=== PATIENT | female | born 1960 | race Caucasian/White ===

== ENCOUNTER → 2017-04-22 | Outpatient (CLI) | payer OTHER ==
[2017-04-22 08:09] LABS: Cholesterol 274 mg/dL (<200); HDL Cholesterol 76 mg/dL (40-60)
== END | disposition home or self-care (01) ==
LOC: LABWHC1 07:26
PROVIDERS: ATTEND Psychiatry & Neurology Psychiatry
DX: E78.5 Hyperlipidemia, unspecified (principal)
CPT/HCPCS: 36415; 80061

== ENCOUNTER 2017-11-10 16:48 | Emergency (ER) | payer OTHER ==
[2017-11-10 16:56] VITALS: RESP 18
[2017-11-10] MEDS ORDERED: SODIUM CHLORIDE 0.9% 1,000 ML IV STA (17:13)
[2017-11-10 17:37] LABS: Appearance,Urine Clear (Clear); Bilirubin,Urine Negative (Negative); Blood,Urine Negative (Negative); Color,Urine Colorless; Glucose,Urine (UA) Negative (Negative); Ketones,Urine Negative (Negative); Leukocyte Esterase,Urine Negative (Negative); Nitrite,Urine Negative (Negative); PH, Urine 7.5 (5.0-8.0); Protein,Urine Negative (Negative); Specific Gravity,Urine 1.003 (1.001-1.035); Urobilinogen,Urine <2.0 mg/dL (<2.0)
--- NOTE | 2017-11-10 17:38 | ED ---
Abdominal Pain HPI - General Chief Complaint: Abdominal Pain Stated Complaint: Abd pain Time Seen by Provider: 11/10/17 16:59 Source: patient, RN notes reviewed Mode of arrival: ambulatory Limitations: no limitations - History of Present Illness Initial Comments: This a 57-year-old female presents emergency Department with chief complaint of right lower quadrant abdominal pain. Patient states that she woke with the pain and felt that she may have just slept wrong and she slipped and chair at the hospital. Patient states that pain did not get much better throughout the day did see PCP felt that she may does have some gas issues. She reports no fever no chills she did have a normal bowel movement today with no difficulty and no change in her symptoms. She states that she does feel the pain even when she stretches back if is very uncomfortable. Patient denies any nausea vomiting. She has no dysuria no hematuria. Patient has had a prior to with surgery and prior cholecystectomy. Patient denies any back pain no flank pain. - Related Data Home Medications Medication Instructions Recorded Confirmed Acetaminophen Tab [Tylenol Tab] 500 mg PO ONCE PRN 11/10/17 11/10/17 Citalopram Hydrobromide [CeleXA] 30 mg PO DAILY 11/10/17 11/10/17 Allergies Allergy/AdvReac Type Severity Reaction Status Date / Time No Known Allergies Allergy Verified 11/10/17 17:07 Review of Systems ROS Statement: Those systems with pertinent positive or pertinent negative responses have been documented in the HPI. ROS Other: All systems not noted in ROS Statement are negative. Past Medical History Past Medical History: No Reported History History of Any Multi-Drug Resistant Organisms: None Reported Past Surgical History: Cholecystectomy Additional Past Surgical History / Comment(s): tubal Past Psychological History: Anxiety, Depression Smoking Status: Never smoker Past Alcohol Use History: None Reported Past Drug Use History: None Reported General Exam Limitations: no limitations General appearance: alert, in no apparent distress Head exam: Present: atraumatic, normocephalic, normal inspection Neck exam: Present: normal inspection. Absent: tenderness, meningismus, lymphadenopathy Respiratory exam: Present: normal lung sounds bilaterally. Absent: respiratory distress, wheezes, rales, rhonchi, stridor Cardiovascular Exam: Present: regular rate, normal rhythm, normal heart sounds. Absent: systolic murmur, diastolic murmur, rubs, gallop, clicks GI/Abdominal exam: Present: soft, tenderness (Moderate right lower quadrant tenderness), guarding (Voluntary guarding with palpation the right lower), normal bowel sounds. Absent: distended, rebound, rigid Back exam: Absent: CVA tenderness (R), CVA tenderness (L) Skin exam: Present: warm, dry, intact, normal color. Absent: rash Course Vital Signs 11/10/17 16:54 Temperature 98.8 F Pulse Rate 96 Respiratory 18 Rate Blood Pressure 133/84 O2 Sat by Pulse 99 Oximetry Medical Decision Making - Medical Decision Making 57-year-old female presented emergency department for right lower quadrant abdominal pain. Patient had CT which was unremarkable. Patient has unremarkable laboratory and urinalysis. There is no exact cause for her pain at this time though infectious have been ruled out. Patient will be discharged advised take Tylenol Motrin and follow-up with PCP return parameters were discussed. - Lab Data Result diagrams: 11/10/17 17:27 11/10/17 17:27 Lab Results 11/10/17 11/10/17 11/10/17 Range/Units 17:27 17:27 17:27 WBC 4.5 (3.8-10.6) k/uL RBC 4.20 (3.80-5.40) m/uL Hgb 13.7 (11.4-16.0) gm/dL Hct 39.9 (34.0-46.0) % MCV 94.8 (80.0-100.0) fL MCH 32.5 (25.0-35.0) pg MCHC 34.3 (31.0-37.0) g/dL RDW 12.3 (11.5-15.5) % Plt Count 262 (150-450) k/uL Neutrophils % 54 % Lymphocytes % 30 % Monocytes % 7 % Eosinophils % 7 % Basophils % 1 % Neutrophils # 2.4 (1.3-7.7) k/uL Lymphocytes # 1.3 (1.0-4.8) k/uL Monocytes # 0.3 (0-1.0) k/uL Eosinophils # 0.3 (0-0.7) k/uL Basophils # 0.0 (0-0.2) k/uL Sodium 143 (137-145) mmol/L Potassium 4.1 (3.5-5.1) mmol/L Chloride 106 (98-107) mmol/L Carbon Dioxide 24 (22-30) mmol/L Anion Gap 13 mmol/L BUN 14 (7-17) mg/dL Creatinine 0.90 (0.52-1.04) mg/dL Est GFR (CKD-EPI)AfAm 83 (>60 ml/min/1.73 sqM) Est GFR (CKD-EPI)NonAf 72 (>60 ml/min/1.73 sqM) Glucose 97 (74-99) mg/dL Calcium 10.1 (8.4-10.2) mg/dL Total Bilirubin 0.4 (0.2-1.3) mg/dL AST 26 (14-36) U/L ALT 27 (9-52) U/L Alkaline Phosphatase 73 (38-126) U/L Total Protein 6.9 (6.3-8.2) g/dL Albumin 4.4 (3.5-5.0) g/dL Amylase 71 (30-110) U/L Lipase 70 (23-300) U/L Urine Color Colorless Urine Appearance Clear (Clear) Urine pH 7.5 (5.0-8.0) Ur Specific [place] 1.003 (1.001-1.035) Urine Protein Negative (Negative) Urine Glucose (UA) Negative (Negative) Urine Ketones Negative (Negative) Urine Blood Negative (Negative) Urine Nitrite Negative (Negative) Urine Bilirubin Negative (Negative) Urine Urobilinogen <2.0 (<2.0) mg/dL Ur Leukocyte Esterase Negative (Negative) Disposition Clinical Impression: Abdominal pain Disposition: HOME SELF-CARE Condition: Stable Instructions: Abdominal Pain (ED) Additional Instructions: Please return to the Emergency Department if symptoms worsen or any other concerns. Is patient prescribed a controlled substance at d/c from ED?: No Referrals: Hugo Cartwright MD [Primary Care Provider] - 1-2 days Time of Disposition: 18:12
[2017-11-10 17:45] LABS: Basophils % (A) 1 %; Eosinophils # (A) 0.3 k/uL (0-0.7); Eosinophils % (A) 7 %; HCT 39.9 % (34.0-46.0); HGB 13.7 gm/dL (11.4-16.0); Lymphocytes # (A) 1.3 k/uL (1.0-4.8); Lymphocytes % (A) 30 %; MCH 32.5 pg (25.0-35.0); MCHC 34.3 g/dL (31.0-37.0); MCV 94.8 fL (80.0-100.0); Mean Platelet Volume 6.3; Monocytes # (A) 0.3 k/uL (0-1.0); Monocytes % (A) 7 %; Neutrophils # (A) 2.4 k/uL (1.3-7.7); Neutrophils % (A) 54 %; Platelet Count 262 k/uL (150-450); RDW 12.3 % (11.5-15.5); WBC 4.5 k/uL (3.8-10.6)
[2017-11-10 17:53] LABS: Albumin 4.4 g/dL (3.5-5.0); Calcium 10.1 mg/dL (8.4-10.2); Potassium 4.1 mmol/L (3.5-5.1); Total Bilirubin 0.4 mg/dL (0.2-1.3); Total Protein 6.9 g/dL (6.3-8.2)
--- NOTE | 2017-11-10 18:00 | CT ---
EXAMINATION TYPE: CT abdomen pelvis w con DATE OF EXAM: 11/10/2017 COMPARISON: NONE HISTORY: Right lower quadrant pain CT DLP: 969 mGycm Automated exposure control for dose reduction was used. TECHNIQUE: Helical acquisition of images was performed from the lung bases through the pelvis. CONTRAST: Performed without Oral Contrast and with IV Contrast, patient injected with 100 mL of Isovue 300. FINDINGS: Lung bases are clear. There is no pleural effusion. Heart size is normal. There is mild enlargement of the biliary tree. There are clips from cholecystectomy. Spleen appears n ormal. There is no pancreatic mass. Common bile duct measures up to 12 mm. There are a few small cyst s grouped in the inferior right lobe of the liver that altogether measure 2 cm. There is no adrenal mass. Kidneys show satisfactory contrast opacification. There is no hydronephrosi s. Ureters are not dilated. There is no retroperitoneal adenopathy. There is no ascites. I see no int estinal wall thickening. There are no dilated loops. Bladder distends smoothly. The uterus is antever felicita. I see no bony destructive process. There is no free fluid in the pelvis. Appendix appears normal . IMPRESSION: NORMAL APPENDIX. MILD ENLARGEMENT OF THE BILIARY TREE BUT NO OBSTRUCTING LESION SEEN IN THE DISTAL CO MMON BILE DUCT.
[2017-11-10 18:23] VITALS: BP 128/69; PULSE 67; TEMP 98
== END 2017-11-10 18:23 | disposition home or self-care (01) ==
LOC: EC 16:48
DX: R10.31 Right lower quadrant pain (principal); F32.9 Major depressive disorder, single episode, unspecified; F41.9 Anxiety disorder, unspecified; Z79.899 Other long term (current) drug therapy; Z90.49 Acquired absence of other specified parts of digestive tract
CPT/HCPCS: 36415; 80053; 82150; 83690; 85025; 81003; 74177; 99284; 96360; Q9967

== ENCOUNTER 2017-11-20 17:54 | Inpatient (IN) | payer OTHER ==
[2017-11-20] MEDS ORDERED: ACETAMINOPHEN IV (For NPO) 1,000 MG in EMPTY BAG 1 BAG IVPB STA (18:25)
[2017-11-20] MEDS ORDERED: SODIUM CHLORIDE 0.9% 1,000 ML IV STA (18:25)
[2017-11-20] MEDS ORDERED: RX INFO: IV CONTRAST WAS GIVEN 1 EACH MISC MISCELLANE PRN (18:25)
--- NOTE | 2017-11-20 18:30 | ED ---
General Adult HPI - General Chief complaint: Fever Stated complaint: Abscess under armpit, fever Time Seen by Provider: 11/20/17 18:08 Source: patient, RN notes reviewed Mode of arrival: ambulatory Limitations: no limitations - History of Present Illness Initial comments: Patient 57-year-old female presenting to the emergency room today with a chief complaint of possible abscess. Patient states that she noticed small bite to the left axilla 2 days ago. She states she began having chills and overall body aches over the last day. States that she went to urgent care and was advised complete emergency room for further evaluation. She states that she was given ibuprofen at urgent care. She states took Tylenol at 11 AM. Patient admits to pain locally to left axilla area worse with any movements of the left arm. Denies any other complaints. Denies any injury or trauma to the area. Patient denies any recent shortness of breath, chest pain, back pain, abdominal pain, nausea or vomiting, numbness or tingling, dysuria or hematuria, constipation or diarrhea, headaches or visual changes, or any other complaints. - Related Data Home Medications Medication Instructions Recorded Confirmed Citalopram Hydrobromide [CeleXA] 30 mg PO DAILY 11/10/17 11/20/17 Cholecalciferol [Vitamin D3] 5,000 unit PO DAILY 11/20/17 11/20/17 Ferrous Sulfate [Feosol] 325 mg PO DAILY 11/20/17 11/20/17 Fish Oil/Dha/Epa [Fish Oil 1,200 1 cap PO DAILY 11/20/17 11/20/17 mg Fish Oil] Vitamin B Complex 1 cap PO DAILY 11/20/17 11/20/17 Allergies Allergy/AdvReac Type Severity Reaction Status Date / Time No Known Allergies Allergy Verified 11/20/17 19:15 Review of Systems ROS Statement: Those systems with pertinent positive or pertinent negative responses have been documented in the HPI. ROS Other: All systems not noted in ROS Statement are negative. Past Medical History Past Medical History: No Reported History History of Any Multi-Drug Resistant Organisms: None Reported Past Surgical History: Cholecystectomy Additional Past Surgical History / Comment(s): tubal Past Psychological History: Anxiety, Depression Smoking Status: Never smoker Past Alcohol Use History: None Reported Past Drug Use History: None Reported General Exam - General Exam Comments Initial Comments: General: The patient is awake and alert, in no distress, and does not appear acutely ill. Eye: Pupils are equal, round and reactive to light, extra-ocular movements are intact. No nystagmus. There is normal conjunctiva bilaterally. No signs of icterus. Ears, nose, mouth and throat: There are moist mucous membranes and no oral lesions. Neck: The neck is supple, there is no tenderness or JVD. Musculoskeletal: Normal ROM, no tenderness. Strength 5/5. Sensation intact. Pulses equal bilaterally 2+. Neurological: A&O x 3. CN II-XII intact, There are no obvious motor or sensory deficits. Coordination appears grossly intact. Speech is normal. Skin: Small lump to the left axilla. Mild redness to the anterior axilla that is tender on palpation. Psychiatric: Cooperative, appropriate mood & affect, normal judgment. Limitations: no limitations Course Vital Signs 11/20/17 11/20/17 18:04 19:17 Temperature 102.6 F H Pulse Rate 99 84 Respiratory 20 16 Rate Blood Pressure 109/65 109/55 O2 Sat by Pulse 96 96 Oximetry Medical Decision Making - Medical Decision Making Patient's labs been reviewed does show 13,000 white count. Patient's to have fever 102.6 at triage. Patient comfortable at this time. CT reviewed and does show evidence of Some left axillary inflammatory changes consistent with phlegmon and cellulitis. No drainable abscess. Patient will be admitted to the hospital several on IV antibiotics - Lab Data Result diagrams: 11/20/17 18:35 11/20/17 18:35 Lab Results 11/20/17 11/20/17 11/20/17 Range/Units 18:35 18:35 18:35 WBC 13.8 H (3.8-10.6) k/uL RBC 3.78 L (3.80-5.40) m/uL Hgb 12.4 (11.4-16.0) gm/dL Hct 35.9 (34.0-46.0) % MCV 94.9 (80.0-100.0) fL MCH 32.7 (25.0-35.0) pg MCHC 34.5 (31.0-37.0) g/dL RDW 12.1 (11.5-15.5) % Plt Count 214 (150-450) k/uL Neutrophils % 82 % Lymphocytes % 8 % Monocytes % 7 % Eosinophils % 2 % Basophils % 0 % Neutrophils # 11.3 H (1.3-7.7) k/uL Lymphocytes # 1.1 (1.0-4.8) k/uL Monocytes # 1.0 (0-1.0) k/uL Eosinophils # 0.2 (0-0.7) k/uL Basophils # 0.0 (0-0.2) k/uL Sodium 137 (137-145) mmol/L Potassium 4.1 (3.5-5.1) mmol/L Chloride 107 (98-107) mmol/L Carbon Dioxide 22 (22-30) mmol/L Anion Gap 8 mmol/L BUN 10 (7-17) mg/dL Creatinine 0.80 (0.52-1.04) mg/dL Est GFR (CKD-EPI)AfAm >90 (>60 ml/min/1.73 sqM) Est GFR (CKD-EPI)NonAf 82 (>60 ml/min/1.73 sqM) Glucose 115 H (74-99) mg/dL Plasma Lactic Acid Edwin 0.9 (0.7-2.0) mmol/L Calcium 9.5 (8.4-10.2) mg/dL Total Bilirubin 0.8 (0.2-1.3) mg/dL AST 19 (14-36) U/L ALT 29 (9-52) U/L Alkaline Phosphatase 77 (38-126) U/L Total Protein 6.4 (6.3-8.2) g/dL Albumin 3.8 (3.5-5.0) g/dL Urine Color Urine Appearance (Clear) Urine pH (5.0-8.0) Ur Specific [place] (1.001-1.035) Urine Protein (Negative) Urine Glucose (UA) (Negative) Urine Ketones (Negative) Urine Blood (Negative) Urine Nitrite (Negative) Urine Bilirubin (Negative) Urine Urobilinogen (<2.0) mg/dL Ur Leukocyte Esterase (Negative) Urine RBC (0-5) /hpf Urine WBC (0-5) /hpf Ur Squamous Epith Cells (0-4) /hpf Urine Mucus (None) /hpf 11/20/17 Range/Units 18:35 WBC (3.8-10.6) k/uL RBC (3.80-5.40) m/uL Hgb (11.4-16.0) gm/dL Hct (34.0-46.0) % MCV (80.0-100.0) fL MCH (25.0-35.0) pg MCHC (31.0-37.0) g/dL RDW (11.5-15.5) % Plt Count (150-450) k/uL Neutrophils % % Lymphocytes % % Monocytes % % Eosinophils % % Basophils % % Neutrophils # (1.3-7.7) k/uL Lymphocytes # (1.0-4.8) k/uL Monocytes # (0-1.0) k/uL Eosinophils # (0-0.7) k/uL Basophils # (0-0.2) k/uL Sodium (137-145) mmol/L Potassium (3.5-5.1) mmol/L Chloride (98-107) mmol/L Carbon Dioxide (22-30) mmol/L Anion Gap mmol/L BUN (7-17) mg/dL Creatinine (0.52-1.04) mg/dL Est GFR (CKD-EPI)AfAm (>60 ml/min/1.73 sqM) Est GFR (CKD-EPI)NonAf (>60 ml/min/1.73 sqM) Glucose (74-99) mg/dL Plasma Lactic Acid Edwin (0.7-2.0) mmol/L Calcium (8.4-10.2) mg/dL Total Bilirubin (0.2-1.3) mg/dL AST (14-36) U/L ALT (9-52) U/L Alkaline Phosphatase (38-126) U/L Total Protein (6.3-8.2) g/dL Albumin (3.5-5.0) g/dL Urine Color Yellow Urine Appearance Clear (Clear) Urine pH 6.0 (5.0-8.0) Ur Specific [place] 1.011 (1.001-1.035) Urine Protein Trace H (Negative) Urine Glucose (UA) 1+ H (Negative) Urine Ketones Negative (Negative) Urine Blood Negative (Negative) Urine Nitrite Negative (Negative) Urine Bilirubin Negative (Negative) Urine Urobilinogen <2.0 (<2.0) mg/dL Ur Leukocyte Esterase Small H (Negative) Urine RBC 2 (0-5) /hpf Urine WBC 3 (0-5) /hpf Ur Squamous Epith Cells <1 (0-4) /hpf Urine Mucus Rare H (None) /hpf Disposition Clinical Impression: Cellulitis Disposition: ADMITTED IP TO THIS HOSP Condition: Good Is patient prescribed a controlled substance at d/c from ED?: No Referrals: Hugo Cartwright MD [Primary Care Provider] - 1-2 days Time of Disposition: 19:48
[2017-11-20 18:51] LABS: Basophils % (A) 0 %; Eosinophils # (A) 0.2 k/uL (0-0.7); Eosinophils % (A) 2 %; HCT 35.9 % (34.0-46.0); HGB 12.4 gm/dL (11.4-16.0); Lymphocytes # (A) 1.1 k/uL (1.0-4.8); Lymphocytes % (A) 8 %; MCH 32.7 pg (25.0-35.0); MCHC 34.5 g/dL (31.0-37.0); MCV 94.9 fL (80.0-100.0); Mean Platelet Volume 6.9; Monocytes % (A) 7 %; Neutrophils # (A) 11.3 k/uL (1.3-7.7); Neutrophils % (A) 82 %; Platelet Count 214 k/uL (150-450); RBC 3.78 m/uL (3.80-5.40); RDW 12.1 % (11.5-15.5); WBC 13.8 k/uL (3.8-10.6)
[2017-11-20 18:54] LABS: Appearance,Urine Clear (Clear); Bilirubin,Urine Negative (Negative); Blood,Urine Negative (Negative); Color,Urine Yellow; Glucose,Urine (UA) 1+ (Negative); Ketones,Urine Negative (Negative); Leukocyte Esterase,Urine Small (Negative); Mucus,Urine Rare /hpf; Nitrite,Urine Negative (Negative); Protein,Urine Trace (Negative); RBC,Urine 2 /hpf (0-5); Specific Gravity,Urine 1.011 (1.001-1.035); Squamous Epithelial Cell,Urine <1 /hpf (0-4); Urobilinogen,Urine <2.0 mg/dL (<2.0); WBC,Urine 3 /hpf (0-5)
[2017-11-20 19:01] LABS: ALT 29 U/L (9-52); AST 19 U/L (14-36); Albumin 3.8 g/dL (3.5-5.0); Alkaline Phosphatase 77 U/L (38-126); Anion Gap 8 mmol/L; Blood Urea Nitrogen 10 mg/dL (7-17); Calcium 9.5 mg/dL (8.4-10.2); Carbon Dioxide 22 mmol/L (22-30); Chloride 107 mmol/L (98-107); Glucose 115 mg/dL (74-99); Potassium 4.1 mmol/L (3.5-5.1); Sodium 137 mmol/L (137-145); Total Bilirubin 0.8 mg/dL (0.2-1.3); Total Protein 6.4 g/dL (6.3-8.2)
--- NOTE | 2017-11-20 19:23 | CT ---
EXAMINATION TYPE: CT chest w con DATE OF EXAM: 11/20/2017 COMPARISON: NONE HISTORY: Left sided axilla lump marked by BB. Left arm pain and armpit swelling CT DLP: 453 mGycm Automated exposure control for dose reduction was used. CONTRAST: CT scan of the chest is performed with IV Contrast, patient injected with 100 mL of Isovue 300. FINDINGS: There is minimal linear density at the posterior lung bases consistent with scarring and subsegmental atelectasis. There is no pleural effusion. There is no evidence of a pulmonary mass. Mediastinum is normal. There is no mediastinal adenopathy. Thoracic aorta appears normal. There are no hilar masses. Heart size is normal. There is no pericardial effusion. There is fat stranding and inflammatory changes in the left axilla. There is asymmetric enlargement o f left axillary lymph nodes. The largest lymph node measures 11 x 7 mm. There is no drainable fluid c ollection. I see no breast mass. The bony thorax is intact. IMPRESSION: There is some left axillary inflammatory changes consistent with phlegmon and cellulitis . No drainable abscess. Minimal left axillary adenopathy. Minimal scarring or subsegmental atelectasis at the lung bases.
[2017-11-20] MEDS ORDERED: SODIUM CHLORIDE 0.9% 1,000 ML IV ONE (19:48)
[2017-11-20] MEDS ORDERED: MORPHINE SULFATE 2 MG/ML SYRINGE IV PRN (19:48)
[2017-11-20] MEDS ORDERED: ONDANSETRON 4 MG/2 ML VIAL IVP PRN (19:48)
[2017-11-20] MEDS ORDERED: NALOXONE 0.4 MG/ML 1 ML VIAL IV PRN (19:48)
[2017-11-20] MEDS ORDERED: PIPERACILLIN-TAZOBACTAM 3.375 GM in DEXTROSE/WATER 1 50ML.BAG IVPB STA (19:51)
[2017-11-20 22:04] VITALS: BMI 23.7
[2017-11-21] MEDS: IBUPROFEN 600 MG TAB PO PRN ×4 (01:16→18:48)
[2017-11-21] MEDS ORDERED: PIPERACILLIN-TAZOBACTAM 3.375 GM in DEXTROSE/WATER 1 50ML.BAG IVPB SCH (04:00)
[2017-11-21 06:44] LABS: Basophils % (A) 0 %; Eosinophils # (A) 0.2 k/uL (0-0.7); Eosinophils % (A) 2 %; Lymphocytes # (A) 0.6 k/uL (1.0-4.8); Lymphocytes % (A) 6 %; MCH 32.9 pg (25.0-35.0); MCHC 34.1 g/dL (31.0-37.0); MCV 96.5 fL (80.0-100.0); Mean Platelet Volume 6.9; Monocytes # (A) 0.5 k/uL (0-1.0); Monocytes % (A) 5 %; Neutrophils # (A) 8.3 k/uL (1.3-7.7); Neutrophils % (A) 86 %; Platelet Count 187 k/uL (150-450); RBC 3.63 m/uL (3.80-5.40); WBC 9.7 k/uL (3.8-10.6)
[2017-11-21 06:53] LABS: ALT 30 U/L (9-52); AST 22 U/L (14-36); Alkaline Phosphatase 72 U/L (38-126); Anion Gap 9 mmol/L; Blood Urea Nitrogen 9 mg/dL (7-17); Calcium 8.9 mg/dL (8.4-10.2); Carbon Dioxide 20 mmol/L (22-30); Chloride 111 mmol/L (98-107); Glucose 96 mg/dL (74-99); Potassium 4.4 mmol/L (3.5-5.1); Sodium 140 mmol/L (137-145); Total Bilirubin 0.8 mg/dL (0.2-1.3); Total Protein 5.4 g/dL (6.3-8.2)
[2017-11-21] MEDS: CITALOPRAM HYDROBROMIDE 10 MG TAB PO SCH (10:01)
[2017-11-21] MEDS: VANCOMYCIN 1,000 MG in SODIUM CHLORIDE 0.9% 250 ML IVPB SCH ×2 (12:06→20:33)
--- NOTE | 2017-11-21 12:27 | P.GSCN ---
<Puja Mendiola Haim - Last Filed: 11/21/17 12:14> History of Present Illness Consult date: 11/21/17 Reason for Consult: Possible abscess left axillary History of present illness: 57-year-old female being seen at the request of the attending for a surgical eval who developed a small lump to the left axillary on Monday after shaving under the arms. Stated by Monday night developed significant tenderness with increased redness had developed by Monday felt feverish chills overall body aches with significant pain involving the left axillary area with increased redness. Patient stated that it hurt to move the left arm. Patient states that she was up camping in a camper over the weekend when the incident occurred. This was no injury no trauma. She did not feel was due to an insect bite. Patient stated that she left [place] brought her to the urgent care who recommended that the patient go to the emergency room for further evaluation. Patient denies any prior episodes. In the emergency room there was a significant amount of tenderness to the left anterior axillary area. In the emergency room a computed tomography scan of the chest was obtained with contrast revealing report indicate left axillary inflammatory changes consistent with cellulitis no drainable fluid collection noted Review of Systems Essentially unremarkable except as mentioned in the present illness Past Medical History Past Medical History: No Reported History History of Any Multi-Drug Resistant Organisms: None Reported Past Surgical History: Cholecystectomy Additional Past Surgical History / Comment(s): tubal , hernia, high cholesterol Past Psychological History: Anxiety, Depression Additional Psychological History / Comment(s): No current depression, takes meds for post menapausal depression. Smoking Status: Never smoker Past Alcohol Use History: None Reported Past Drug Use History: None Reported - Past Family History Father Family Medical History: Cancer, Hypertension, Thyroid Disorder Additional Family Medical History / Comment(s): stroke Mother Additional Family Medical History / Comment(s): cholecysectomy Medications and Allergies Home Medications Medication Instructions Recorded Confirmed Type Citalopram Hydrobromide [CeleXA] 30 mg PO DAILY 11/10/17 11/20/17 History Cholecalciferol [Vitamin D3] 5,000 unit PO DAILY 11/20/17 11/20/17 History Ferrous Sulfate [Feosol] 325 mg PO DAILY 11/20/17 11/20/17 History Fish Oil/Dha/Epa [Fish Oil 1,200 1 cap PO DAILY 11/20/17 11/20/17 History mg Fish Oil] Vitamin B Complex 1 cap PO DAILY 11/20/17 11/20/17 History Allergies Allergy/AdvReac Type Severity Reaction Status Date / Time No Known Allergies Allergy Verified 11/20/17 22:18 Surgical - Exam Vital Signs Temp Pulse Resp BP Pulse Ox 102.6 F H 99 20 109/65 96 11/20/17 18:04 11/20/17 18:04 11/20/17 18:04 11/20/17 18:04 11/20/17 18:04 GENERAL APPEARANCE: 57-year-old female patient is alert, oriented, in no acute distress. VITAL SIGNS: Reviewed HEENT: Head is normocephalic and atraumatic. Pupils are equal and reactive. The nares are patent. Oropharynx is clear without lesions. NECK: Supple without lymphadenopathy. Traches midline. HEART: S1, S2. Regular rate and rhythm. No murmur noted no complaints of chest pain LUNGS: No crackles or wheezes are heard. Adequate air movement ABDOMEN: Soft, nontender, nondistended with good bowel sounds. No peritoneal signs. No palpable organomegaly or masses. EXTREMITIES: Normal skin color and turgor. No cyanosis, rash, ulceration, clubbing or edema. Radial pedal pulses are 2/4 bilaterally. Left axillary tenderness redness decreased from reference markings tender to the touch NEUROLOGICAL: No focal deficits. Strength and sensation are grossly intact. Results - Labs 11/21/17 06:08 11/21/17 06:08 Abnormal Lab Results - Last 24 Hours (Table) 11/20/17 11/20/17 11/20/17 Range/Units 18:35 18:35 18:35 WBC 13.8 H (3.8-10.6) k/uL RBC 3.78 L (3.80-5.40) m/uL Neutrophils # 11.3 H (1.3-7.7) k/uL Lymphocytes # (1.0-4.8) k/uL Chloride (98-107) mmol/L Carbon Dioxide (22-30) mmol/L Glucose 115 H (74-99) mg/dL Total Protein (6.3-8.2) g/dL Albumin (3.5-5.0) g/dL Urine Protein Trace H (Negative) Urine Glucose (UA) 1+ H (Negative) Ur Leukocyte Esterase Small H (Negative) Urine Mucus Rare H (None) /hpf 11/21/17 11/21/17 Range/Units 06:08 06:08 WBC (3.8-10.6) k/uL RBC 3.63 L (3.80-5.40) m/uL Neutrophils # 8.3 H (1.3-7.7) k/uL Lymphocytes # 0.6 L (1.0-4.8) k/uL Chloride 111 H (98-107) mmol/L Carbon Dioxide 20 L (22-30) mmol/L Glucose (74-99) mg/dL Total Protein 5.4 L (6.3-8.2) g/dL Albumin 3.0 L (3.5-5.0) g/dL Urine Protein (Negative) Urine Glucose (UA) (Negative) Ur Leukocyte Esterase (Negative) Urine Mucus (None) /hpf Diabetes panel 11/20/17 11/21/17 Range/Units 18:35 06:08 Sodium 137 140 (137-145) mmol/L Potassium 4.1 4.4 (3.5-5.1) mmol/L Chloride 107 111 H (98-107) mmol/L Carbon Dioxide 22 20 L (22-30) mmol/L BUN 10 9 (7-17) mg/dL Creatinine 0.80 0.74 (0.52-1.04) mg/dL Glucose 115 H 96 (74-99) mg/dL Calcium 9.5 8.9 (8.4-10.2) mg/dL AST 19 22 (14-36) U/L ALT 29 30 (9-52) U/L Alkaline Phosphatase 77 72 (38-126) U/L Total Protein 6.4 5.4 L (6.3-8.2) g/dL Albumin 3.8 3.0 L (3.5-5.0) g/dL Calcium panel 11/20/17 11/21/17 Range/Units 18:35 06:08 Calcium 9.5 8.9 (8.4-10.2) mg/dL Albumin 3.8 3.0 L (3.5-5.0) g/dL Pituitary panel 11/20/17 11/21/17 Range/Units 18:35 06:08 Sodium 137 140 (137-145) mmol/L Potassium 4.1 4.4 (3.5-5.1) mmol/L Chloride 107 111 H (98-107) mmol/L Carbon Dioxide 22 20 L (22-30) mmol/L BUN 10 9 (7-17) mg/dL Creatinine 0.80 0.74 (0.52-1.04) mg/dL Glucose 115 H 96 (74-99) mg/dL Calcium 9.5 8.9 (8.4-10.2) mg/dL Adrenal panel 11/20/17 11/21/17 Range/Units 18:35 06:08 Sodium 137 140 (137-145) mmol/L Potassium 4.1 4.4 (3.5-5.1) mmol/L Chloride 107 111 H (98-107) mmol/L Carbon Dioxide 22 20 L (22-30) mmol/L BUN 10 9 (7-17) mg/dL Creatinine 0.80 0.74 (0.52-1.04) mg/dL Glucose 115 H 96 (74-99) mg/dL Calcium 9.5 8.9 (8.4-10.2) mg/dL Total Bilirubin 0.8 0.8 (0.2-1.3) mg/dL AST 19 22 (14-36) U/L ALT 29 30 (9-52) U/L Alkaline Phosphatase 77 72 (38-126) U/L Total Protein 6.4 5.4 L (6.3-8.2) g/dL Albumin 3.8 3.0 L (3.5-5.0) g/dL Assessment and Plan Assessment: Impression Present on admission left axillary cellulitis CAT scan of the chest show no drainable fluid collection left axillary inflammatory changes consistent with cellulitis Present on admission leukocytosis febrile meet SIRS criteria no evidence of sepsis suspect due to cellulitis left axillary Plan Dr. Bull will review the CAT scan of the chest with further recommendations Agree with IV vancomycin Pain control Further surgical recommendations pending will follow with you Surgical consultation note dictated for Dr. Salmeron The above impression and plan of care have been discussed and directed by signing physician. Puja Mendiola nurse practitioner acting as scribe for signing physician. <Corina Bull - Last Filed: 11/21/17 16:47> Surgical - Exam Vital Signs Temp Pulse Resp BP Pulse Ox 102.6 F H 99 20 109/65 96 11/20/17 18:04 11/20/17 18:04 11/20/17 18:04 11/20/17 18:04 11/20/17 18:04 Results - Labs 11/21/17 06:08 11/21/17 06:08 Abnormal Lab Results - Last 24 Hours (Table) 11/20/17 11/20/17 11/20/17 Range/Units 18:35 18:35 18:35 WBC 13.8 H (3.8-10.6) k/uL RBC 3.78 L (3.80-5.40) m/uL Neutrophils # 11.3 H (1.3-7.7) k/uL Lymphocytes # (1.0-4.8) k/uL Chloride (98-107) mmol/L Carbon Dioxide (22-30) mmol/L Glucose 115 H (74-99) mg/dL Total Protein (6.3-8.2) g/dL Albumin (3.5-5.0) g/dL Urine Protein Trace H (Negative) Urine Glucose (UA) 1+ H (Negative) Ur Leukocyte Esterase Small H (Negative) Urine Mucus Rare H (None) /hpf 11/21/17 11/21/17 Range/Units 06:08 06:08 WBC (3.8-10.6) k/uL RBC 3.63 L (3.80-5.40) m/uL Neutrophils # 8.3 H (1.3-7.7) k/uL Lymphocytes # 0.6 L (1.0-4.8) k/uL Chloride 111 H (98-107) mmol/L Carbon Dioxide 20 L (22-30) mmol/L Glucose (74-99) mg/dL Total Protein 5.4 L (6.3-8.2) g/dL Albumin 3.0 L (3.5-5.0) g/dL Urine Protein (Negative) Urine Glucose (UA) (Negative) Ur Leukocyte Esterase (Negative) Urine Mucus (None) /hpf Diabetes panel 11/20/17 11/21/17 Range/Units 18:35 06:08 Sodium 137 140 (137-145) mmol/L Potassium 4.1 4.4 (3.5-5.1) mmol/L Chloride 107 111 H (98-107) mmol/L Carbon Dioxide 22 20 L (22-30) mmol/L BUN 10 9 (7-17) mg/dL Creatinine 0.80 0.74 (0.52-1.04) mg/dL Glucose 115 H 96 (74-99) mg/dL Calcium 9.5 8.9 (8.4-10.2) mg/dL AST 19 22 (14-36) U/L ALT 29 30 (9-52) U/L Alkaline Phosphatase 77 72 (38-126) U/L Total Protein 6.4 5.4 L (6.3-8.2) g/dL Albumin 3.8 3.0 L (3.5-5.0) g/dL Calcium panel 11/20/17 11/21/17 Range/Units 18:35 06:08 Calcium 9.5 8.9 (8.4-10.2) mg/dL Albumin 3.8 3.0 L (3.5-5.0) g/dL Pituitary panel 11/20/17 11/21/17 Range/Units 18:35 06:08 Sodium 137 140 (137-145) mmol/L Potassium 4.1 4.4 (3.5-5.1) mmol/L Chloride 107 111 H (98-107) mmol/L Carbon Dioxide 22 20 L (22-30) mmol/L BUN 10 9 (7-17) mg/dL Creatinine 0.80 0.74 (0.52-1.04) mg/dL Glucose 115 H 96 (74-99) mg/dL Calcium 9.5 8.9 (8.4-10.2) mg/dL Adrenal panel 11/20/17 11/21/17 Range/Units 18:35 06:08 Sodium 137 140 (137-145) mmol/L Potassium 4.1 4.4 (3.5-5.1) mmol/L Chloride 107 111 H (98-107) mmol/L Carbon Dioxide 22 20 L (22-30) mmol/L BUN 10 9 (7-17) mg/dL Creatinine 0.80 0.74 (0.52-1.04) mg/dL Glucose 115 H 96 (74-99) mg/dL Calcium 9.5 8.9 (8.4-10.2) mg/dL Total Bilirubin 0.8 0.8 (0.2-1.3) mg/dL AST 19 22 (14-36) U/L ALT 29 30 (9-52) U/L Alkaline Phosphatase 77 72 (38-126) U/L Total Protein 6.4 5.4 L (6.3-8.2) g/dL Albumin 3.8 3.0 L (3.5-5.0) g/dL
--- NOTE | 2017-11-21 12:41 | P.HPIM ---
History of Present Illness 47-year-old pleasant female came in with Celexa the left axilla. Patient started developing a small lump in the left axillary on Monday started having fever chills severe tenderness severe pain about 9/10 severity sharp in nature nonradiating. Patient denied any recent insect bite [place]. Patient was started on Zosyn. Patient did have history of C. diff colitis in the past Zosyn will be discontinued patient will be started on IV vancomycin. CAT scan of that area did not show any obvious abscesses there is a small phlegmon in that area significantly cellulitis patient has out of proportion pain but there is no necrotizing fasciaitis, or gas under the skin on the CAT scan. Patient will be monitored overnight possibility of discharge tomorrow if she improves. Review of Systems REVIEW OF SYSTEMS: CONSTITUTIONAL: , no malaise, no fatigue. HEENT: No recent visual problems or hearing problems. Denied any sore throat. CARDIOVASCULAR: No chest pain, orthopnea, PND, no palpitations, no syncope. PULMONARY: No shortness of breath, no cough, no hemoptysis. GASTROINTESTINAL: No diarrhea, no nausea, no vomiting, no abdominal pain. Normoactive bowel sounds. NEUROLOGICAL: No headaches, no weakness, no numbness. HEMATOLOGICAL: Denies any bleeding or petechiae. GENITOURINARY: Denies any burning micturition, frequency, or urgency. MUSCULOSKELETAL/RHEUMATOLOGICAL: Denies any joint pain, swelling, or any muscle pain. ENDOCRINE: Denies any polyuria or polydipsia. The rest of the 14-point review of systems is negative. Past Medical History Past Medical History: No Reported History History of Any Multi-Drug Resistant Organisms: None Reported Past Surgical History: Cholecystectomy Additional Past Surgical History / Comment(s): tubal , hernia, high cholesterol Past Psychological History: Anxiety, Depression Additional Psychological History / Comment(s): No current depression, takes meds for post menapausal depression. Smoking Status: Never smoker Past Alcohol Use History: None Reported Past Drug Use History: None Reported - Past Family History Father Family Medical History: Cancer, Hypertension, Thyroid Disorder Additional Family Medical History / Comment(s): stroke Mother Additional Family Medical History / Comment(s): cholecysectomy Medications and Allergies Home Medications Medication Instructions Recorded Confirmed Type Citalopram Hydrobromide [CeleXA] 30 mg PO DAILY 11/10/17 11/20/17 History Cholecalciferol [Vitamin D3] 5,000 unit PO DAILY 11/20/17 11/20/17 History Ferrous Sulfate [Feosol] 325 mg PO DAILY 11/20/17 11/20/17 History Fish Oil/Dha/Epa [Fish Oil 1,200 1 cap PO DAILY 11/20/17 11/20/17 History mg Fish Oil] Vitamin B Complex 1 cap PO DAILY 11/20/17 11/20/17 History Allergies Allergy/AdvReac Type Severity Reaction Status Date / Time No Known Allergies Allergy Verified 11/20/17 22:18 Physical Exam Vitals: Vital Signs Temp Pulse Pulse Resp BP BP Pulse Ox 11/21/17 11:35 98.1 F 80 18 96/59 95 11/21/17 07:20 100.0 F H 90 19 104/58 97 11/21/17 01:43 97.4 F L 73 18 104/63 98 11/21/17 00:00 73 18 11/20/17 21:19 98.1 F 78 16 95/59 96 11/20/17 21:15 73 18 11/20/17 20:29 98.7 F 81 16 110/68 99 11/20/17 20:00 98.7 F 81 16 117/80 98 11/20/17 19:17 84 16 109/55 96 11/20/17 18:04 102.6 F H 99 20 109/65 96 Intake and Output 11/20/17 11/21/17 11/21/17 22:59 06:59 14:59 Other: Voiding Method Toilet Toilet # Voids 1 1 Weight 60.781 kg PHYSICAL EXAMINATION: GENERAL: The patient is alert and oriented x3, not in any acute distress. Well developed, well nourished. HEENT: Pupils are round and equally reacting to light. EOMI. No scleral icterus. No conjunctival pallor. Normocephalic, atraumatic. No pharyngeal erythema. No thyromegaly. CARDIOVASCULAR: S1 and S2 present. No murmurs, rubs, or gallops. PULMONARY: Chest is clear to auscultation, no wheezing or crackles. ABDOMEN: Soft, nontender, nondistended, normoactive bowel sounds. No palpable organomegaly. MUSCULOSKELETAL: No joint swelling or deformity. EXTREMITIES: No cyanosis, clubbing, or pedal edema. NEUROLOGICAL: Gross neurological examination did not reveal any focal deficits. SKIN: Left axilla there is significant cellulitis involving the whole going to the breast area medially and to mid humeral area laterally. Patient has a small lump does not appear to be an abscess may be a phlegmon as described in the CAT scan there is significant tenderness local is of temperature and redness. Results CBC & Chem 7: 11/21/17 06:08 11/21/17 06:08 Labs: Abnormal Lab Results - Last 24 Hours (Table) 11/20/17 11/20/17 11/20/17 Range/Units 18:35 18:35 18:35 WBC 13.8 H (3.8-10.6) k/uL RBC 3.78 L (3.80-5.40) m/uL Neutrophils # 11.3 H (1.3-7.7) k/uL Lymphocytes # (1.0-4.8) k/uL Chloride (98-107) mmol/L Carbon Dioxide (22-30) mmol/L Glucose 115 H (74-99) mg/dL Total Protein (6.3-8.2) g/dL Albumin (3.5-5.0) g/dL Urine Protein Trace H (Negative) Urine Glucose (UA) 1+ H (Negative) Ur Leukocyte Esterase Small H (Negative) Urine Mucus Rare H (None) /hpf 11/21/17 11/21/17 Range/Units 06:08 06:08 WBC (3.8-10.6) k/uL RBC 3.63 L (3.80-5.40) m/uL Neutrophils # 8.3 H (1.3-7.7) k/uL Lymphocytes # 0.6 L (1.0-4.8) k/uL Chloride 111 H (98-107) mmol/L Carbon Dioxide 20 L (22-30) mmol/L Glucose (74-99) mg/dL Total Protein 5.4 L (6.3-8.2) g/dL Albumin 3.0 L (3.5-5.0) g/dL Urine Protein (Negative) Urine Glucose (UA) (Negative) Ur Leukocyte Esterase (Negative) Urine Mucus (None) /hpf Thrombosis Risk Factor Assmnt - Choose All That Apply Any of the Below Risk Factors Present?: No Other Risk Factors: No Other congenital or acquired thrombophilia - If yes, enter type in comment: No Thrombosis Risk Factor Assessment Level: Very Low Risk Assessment and Plan Plan: -Sepsis: Secondary to left axillary cellulitis without any obvious abscess, patient was started on IV vancomycin blood cultures are so far negative. Surgical consultation will be obtained -Hyperchloremia due to IV fluids -Mild hypotension secondary to sepsis
--- NOTE | 2017-11-21 16:47 | P.PN ---
Progress Note - Text Progress Note Date: 11/21/17 Patient seen and evaluated. CT scan personally reviewed showing enlarged lymph node with no identifiable fluid collection. No surgical intervention required. Continue antibiotics. Will follow as needed.
[2017-11-21] MEDS: SODIUM CHLORIDE 0.9% 1,000 ML IV SCH (20:34)
[2017-11-22] MEDS: VANCOMYCIN 1,000 MG in SODIUM CHLORIDE 0.9% 250 ML IVPB SCH ×3 (04:15→20:08)
[2017-11-22] MEDS: IBUPROFEN 600 MG TAB PO PRN ×4 (04:16→23:20)
[2017-11-22] MEDS: SODIUM CHLORIDE 0.9% 1,000 ML IV SCH ×3 (07:03→18:05)
[2017-11-22] MEDS: CITALOPRAM HYDROBROMIDE 10 MG TAB PO SCH (08:14)
--- NOTE | 2017-11-22 11:47 | P.PN ---
Subjective 57-year-old female admitted for sepsis secondary to left axillary cellulitis with a phlegmon. Patient does have in duration today but the redness and localized of temperature significantly improved patient is on IV vancomycin. surgeries following the patient I'll consult infectious disease will continue with IV antibiotics today. patient was unable to lift the left arm yesterday which she is able to do today. Constitutional: Denied any fatigue denied any fever. Cardio vascular: denied any chest pain, palpitations Gastrointestinal denied any nausea vomiting Pulmonary: Denied any shortness of breath cough Neurologic denied any new focal deficits Objective - Vital Signs Vital signs: Vital Signs Temp 98.4 F 11/22/17 07:00 Pulse 77 11/22/17 07:00 Resp 16 11/22/17 07:00 BP 92/62 11/22/17 07:00 Pulse Ox 95 11/22/17 07:00 Intake & Output 11/21/17 11/22/17 11/22/17 18:59 06:59 18:59 Intake Total 800 Balance 800 Intake: Oral 800 Other: Voiding Method Toilet # Voids 2 1 - Exam PHYSICAL EXAMINATION: GENERAL: The patient is alert and oriented x3, not in any acute distress. Well developed, well nourished. HEENT: Pupils are round and equally reacting to light. EOMI. No scleral icterus. No conjunctival pallor. Normocephalic, atraumatic. No pharyngeal erythema. No thyromegaly. CARDIOVASCULAR: S1 and S2 present. No murmurs, rubs, or gallops. PULMONARY: Chest is clear to auscultation, no wheezing or crackles. ABDOMEN: Soft, nontender, nondistended, normoactive bowel sounds. No palpable organomegaly. MUSCULOSKELETAL: No joint swelling or deformity. EXTREMITIES: No cyanosis, clubbing, or pedal edema. NEUROLOGICAL: Gross neurological examination did not reveal any focal deficits. SKIN: Left axilla there is significant cellulitis involving the whole going to the breast area medially and to mid humeral area laterally. Patient has a small lump does not appear to be an abscess may be a phlegmon as described in the CAT scan there is significant tenderness local is of temperature and redness. Patient's redness improved but does have new induration - Labs CBC & Chem 7: 11/21/17 06:08 11/21/17 06:08 Labs: Microbiology - Last 24 Hours (Table) 11/20/17 18:35 Blood Culture - Preliminary Blood No Growth after 24 hours Assessment and Plan Plan: -Sepsis: Secondary to left axillary cellulitis without any obvious abscess, patient was started on IV vancomycin blood cultures are so far negative. Surgery evaluated the patient, there is some new induration although redness and cellulitis appeared to have improved. Continue with vancomycin consul infectious disease -Hyperchloremia due to IV fluids -Mild hypotension secondary to sepsis
--- NOTE | 2017-11-22 21:08 | P.PN ---
Subjective Progress Note Date: 11/22/17 She reports increased pain along the axillae compared to yesterday. No fevers or chills. WBC is normal today than yesterday. She has been using warm compress along the left axillae and notices more redness than yesterday. Her is at bedside. Objective - Vital Signs Vital signs: Vital Signs Temp 97.7 F 11/22/17 19:58 Pulse 88 11/22/17 20:20 Resp 18 11/22/17 20:20 BP 116/70 11/22/17 18:35 Pulse Ox 94 L 11/22/17 18:35 Intake & Output 11/22/17 11/22/17 11/23/17 06:59 18:59 06:59 Other: Voiding Method Toilet Toilet # Voids 1 2 - Exam SKIN: Increased erythema beyond the borders of markings of left axillae, 6 cm. No discrete fluid collection palpated. GENERAL: Well developed and in no acute distress. Pleasant. HEENT: No sclera icterus. Extraocular movements grossly intact. Moist buccal mucosa. Head is atraumatic, normocephalic. Hears conversational speech. No nasal drainage. NECK: Supple without lymphadenopathy. CHEST: Non-labored respirations and equal bilateral excursions. CARDIOVASCULAR: Regular rate and rhythm. Palpable 2+ radial pulses. MUSCULOSKELETAL: No clubbing, cyanosis or edema. NEUROLOGIC: No focal or lateralizing signs. PSYCH: Appropriate affect. Alert and oriented to person, place and time. - Labs CBC & Chem 7: 11/23/17 11:11 11/23/17 11:11 Labs: Microbiology - Last 24 Hours (Table) 11/20/17 18:35 Blood Culture - Preliminary Blood No Growth after 48 hours Assessment and Plan (1) Cellulitis of axilla, left Current Visit: Yes Status: Acute Code(s): L03.112 - CELLULITIS OF LEFT AXILLA SNOMED Code(s): 02925079 Plan: 1. Recommend ultrasound of the left axillae to identify any drainable fluid collection. 2. If fluid collection found, then surgery to be scheduled at earliest, the following day.
--- NOTE | 2017-11-22 23:45 | CONS ---
CONSULTATION DATE OF SERVICE: 11/22/2017. REASON FOR CONSULTATION: Left axillary abscess and cellulitis. HISTORY OF PRESENT ILLNESS: The patient is a 57-year-old female presenting to the ER at [facility] on the with chief complaints of left axillary pain, swelling and redness. Her symptoms have been going on for about 2 days prior to presentation to the hospital. The patient has been camping up on the [place] side and she had shaved her left axilla prior to that with a glenn and she noticed cellulitis that began in a painful spot and the initial pain was more of a dull aching 2/10-3/10 and no radiation. Subsequently has become more swollen and painful. Pain almost 10/10 and was hard for her to raise her arm or move her left shoulder. Subsequently developed redness to that area along with rigors and chills. The patient went to an urgent care on the way back home, where the patient was evaluated and advised that she needed to go to the ER. The patient was evaluated by the ER physician and a CT of the chest was performed which left axilla inflammatory changes consistent with cellulitis. No drainable abscess. The patient has been treated with vancomycin. I was asked to see the patient today for further recommendation of antibiotic therapy. On arrival to the ER, the patient did have fever of 102.6 degrees Fahrenheit and the patient did have tachycardia with heart rate of 99 and the white count was elevated at 13.8. The patient did have blood cultures which have been negative so far. REVIEW OF SYSTEMS: CONSTITUTIONAL: Positive for weakness along with the fever and chills. EYES: No complaint. ENT: No complaint. RESPIRATORY: No complaint. CARDIOVASCULAR: No complaint. GENITOURINARY: No complaint. GASTROINTESTINAL: No complaint. MUSCULOSKELETAL: As per HPI. INTEGUMENTARY: As per HPI. PSYCHOLOGICAL: No complaint. ENDOCRINE: No complaint. NEUROLOGIC: No complaint. PAST MEDICAL HISTORY: No anxiety or depression. PAST SURGICAL HISTORY: Cholecystectomy: SOCIAL HISTORY: No history of smoking, drinking or drug use. FAMILY HISTORY: No pertinent findings noticed. ALLERGIES: No known drug allergies. MEDICATIONS: The patient is currently on: 1. Tylenol. 2. Celexa. 3. Motrin. 4. Vancomycin. Pharmacy to dose. 5. Narcan. 6. Zofran. 7. Vancomycin. EXAMINATION: Her blood pressure is 115/70 with a pulse of 90, temperature of 99.7. She is 94% on room air. General description is middle-aged female lying in bed in no distress. No tachypnea or accessory muscle of respiration use. HEENT shows no pallor or scleral icterus. Oral mucous membranes dry. No pharyngeal erythema or thrush. NECK: Trachea central. No thyromegaly. LUNGS: Unlabored breathing. Clear to auscultation anteriorly. No wheeze or crackle. HEART: S1, S2. Regular rate and rhythm. ABDOMEN: Soft, no tenderness. No guarding or rigidity. No organomegaly. EXTREMITIES: No edema of feet. Axilla: The patient did have pain on movement of axillae. She was noticed to have erythema extending down from the line that was placed yesterday. A small area of induration was noticed on the axillary area, but no fluctuation or any drainage, which was painful to touch. NEUROLOGICAL: Patient is awake, alert, oriented x3. Mood and affect normal. LABS: Hemoglobin is 12, white count 9.7. Admission white count was 13.8 with a BUN of 9 creatinine 0.74. Electrolytes have been normal. Liver enzymes are normal. UA has been negative. Blood culture has been negative so far. DIAGNOSTIC IMPRESSION AND PLAN: Patient admitted to hospital with sepsis in patient who did have a fever of 102 degrees Fahrenheit, tachycardia, elevated white count. Source is left leg secondary cellulitis with concern for possible underlying abscess that could have been initiated or caused by trauma from her shaving prior to this started and more likely from a gram-positive skin ariela such as Streptococcus aureus and community-associated methicillin-resistant Staphylococcus aureus to be in the likely differential. PLAN: 1. An ultrasound of the axilla has been ordered to document any fluid collection which if present, drainage should be performed and the fluid sent for culture along with a gram stain. 2. We will keep the patient on vancomycin. Pharmacy to dose, target of 15. 3. Warm compresses to the area in the marked the area of redness. 4. Will follow up on clinical condition and culture to further adjust medication if needed. Thank you for this consultation. Will follow this patient along with you. MMODL / IJN: [id number] /
[2017-11-23] MEDS: SODIUM CHLORIDE 0.9% 1,000 ML IV SCH ×2 (03:49→20:23)
[2017-11-23] MEDS: VANCOMYCIN 1,000 MG in SODIUM CHLORIDE 0.9% 250 ML IVPB SCH ×3 (03:49→20:22)
[2017-11-23] MEDS: IBUPROFEN 600 MG TAB PO PRN ×2 (06:16→12:30)
[2017-11-23] MEDS: CITALOPRAM HYDROBROMIDE 10 MG TAB PO SCH (08:58)
--- NOTE | 2017-11-23 09:30 | US ---
EXAMINATION TYPE: US axilla LT DATE OF EXAM: 11/23/2017 COMPARISON: NONE CLINICAL HISTORY: abscess. Noticed pea sized lump this weekend, running fever, reddened area getting larger and painful Hypoechoic 0.8 x 0.8 x 1.0 cm area corresponding to indicated lump. Left axilla explored around lump, no gross abnormality noted. Some color flow seen, though area does not show typical shape for lymph node IMPRESSION: 1. 1.0 x 0.8 cm nodule within the left axilla may represent a area of shotty adenopathy and could be followed on the one month basis to confirm stability. Appears to most likely correspond to a lymph no de within the left axilla noted by recent CT scan. X line 2. Subcutaneous edema correlate for cellulitis.
[2017-11-23] MEDS ORDERED: VANCOMYCIN TROUGH DUE 1 EACH MISC MISCELLANE ONE (11:00)
[2017-11-23 11:40] LABS: HCT 32.7 % (34.0-46.0); HGB 10.8 gm/dL (11.4-16.0); MCH 32.5 pg (25.0-35.0); MCHC 33.1 g/dL (31.0-37.0); Mean Platelet Volume 7.3; Platelet Count 206 k/uL (150-450); RBC 3.33 m/uL (3.80-5.40); RDW 12.3 % (11.5-15.5); WBC 9.5 k/uL (3.8-10.6)
--- NOTE | 2017-11-23 12:22 | P.PN ---
<Puja Mendiola - Last Filed: 11/23/17 12:17> Subjective Progress Note Date: 11/23/17 57-year-old female sitting up in a chair left arm elevated on a pillow. Patient reports continues to have tenderness to the left axillary area ultrasound of the left axillary report reviewed showed a 1 x 0.8 cm nodule within the left axillary may represent shotty adenopathy could be followed up in a follow-up x-ray. Subcutaneous edema suspect cellulitis Objective - Vital Signs Vital signs: Vital Signs Temp 98.3 F 11/23/17 08:19 Pulse 82 11/23/17 08:19 Resp 16 11/23/17 08:19 BP 114/59 11/23/17 08:19 Pulse Ox 92 L 11/23/17 08:19 Intake & Output 11/22/17 11/23/17 11/23/17 18:59 06:59 18:59 Intake Total 500 Balance 500 Intake: Oral 500 Other: Voiding Method Toilet # Voids 2 1 - Exam Physical exam 57-year-old female sitting up in a chair appears in no acute distress Lungs clear adequate air movement Heart S1-S2 audible regular Abdomen soft nondistended no nausea no vomiting Extremities no pedal edema. Left axillary area area warm to touch redness persist tender to touch increased redness beyond the borders of the left axillary no palpable fluid collection noted - Labs CBC & Chem 7: 11/23/17 11:11 11/21/17 06:08 Labs: Abnormal Lab Results - Last 24 Hours (Table) 11/23/17 Range/Units 11:11 RBC 3.33 L (3.80-5.40) m/uL Hgb 10.8 L (11.4-16.0) gm/dL Hct 32.7 L (34.0-46.0) % Microbiology - Last 24 Hours (Table) 11/20/17 18:35 Blood Culture - Preliminary Blood No Growth after 48 hours Assessment and Plan Assessment: Impression Present on admission left axillary cellulitis CAT scan of the chest show no drainable fluid collection left axillary inflammatory changes consistent with cellulitis Present on admission leukocytosis febrile meet SIRS criteria no evidence of sepsis suspect due to cellulitis left axillary Plan Keep left arm elevated encourage range of motion to the left arm Agree with IV vancomycin Pain control Further surgical recommendations pending will follow with you Follow-up on a CBC note dictated for Dr. Salmeron The above impression and plan of care have been discussed and directed by signing physician. Puja Mendiola nurse practitioner acting as scribe for signing physician. <JorgitoCorina N - Last Filed: 11/23/17 18:50> Objective - Vital Signs Vital signs: Vital Signs Temp 98.1 F 11/23/17 16:18 Pulse 75 11/23/17 16:18 Resp 16 11/23/17 16:18 BP 132/79 11/23/17 16:18 Pulse Ox 97 11/23/17 16:18 Intake & Output 11/22/17 11/23/17 11/23/17 18:59 06:59 18:59 Intake Total 500 Balance 500 Intake: Oral 500 Other: Voiding Method Toilet # Voids 2 1 3 - Labs CBC & Chem 7: 11/23/17 11:11 11/23/17 11:11 Labs: Abnormal Lab Results - Last 24 Hours (Table) 11/23/17 11/23/17 Range/Units 11:11 11:11 RBC 3.33 L (3.80-5.40) m/uL Hgb 10.8 L (11.4-16.0) gm/dL Hct 32.7 L (34.0-46.0) % Chloride 112 H (98-107) mmol/L Carbon Dioxide 21 L (22-30) mmol/L Microbiology - Last 24 Hours (Table) 11/20/17 18:35 Blood Culture - Preliminary Blood No Growth after 48 hours Assessment and Plan (1) Cellulitis of axilla, left Current Visit: Yes Status: Acute Code(s): L03.112 - CELLULITIS OF LEFT AXILLA SNOMED Code(s): 60512509 Plan: Patent seen and evaluated. She feels much better today. Ultrasound personally reviewed confirming clinical suspicion of adenopathy. No drainable fluid collection. Continue with antibiotic management. Adenopathy may persist for 3- 4 weeks and patient reassured. No surgical intervention. We'll follow as needed. General surgery signing off.
[2017-11-23 12:39] LABS: Anion Gap 9 mmol/L; Blood Urea Nitrogen 9 mg/dL (7-17); Calcium 9.1 mg/dL (8.4-10.2); Carbon Dioxide 21 mmol/L (22-30); Chloride 112 mmol/L (98-107); Glucose 84 mg/dL (74-99); Potassium 4.2 mmol/L (3.5-5.1); Sodium 142 mmol/L (137-145)
[2017-11-23] MEDS ORDERED: traMADol 50 MG TAB PO PRN (16:05)
--- NOTE | 2017-11-23 16:10 | P.PN ---
Subjective 47-year-old pleasant female came in with Celexa the left axilla. Patient started developing a small lump in the left axillary on Monday started having fever chills severe tenderness severe pain about 9/10 severity sharp in nature nonradiating. Patient denied any recent insect [place] Patient was started on Zosyn. Patient did have history of C. diff colitis in the past Zosyn will be discontinued patient will be started on IV vancomycin. CAT scan of that area did not show any obvious abscesses there is a small phlegmon in that area significantly cellulitis patient has out of proportion pain but there is no necrotizing fasciaitis, or gas under the skin on the CAT scan. Patient will be monitored overnight possibility of discharge tomorrow if she improves. 11/23/2017 Patient seen and examined by me at bedside, she still have an infection in her left axilla however she feels a little bit better. Patient still has induration on her left axilla, still warm but the redness and localized of temperature significantly improved patient is on IV vancomycin. surgeries following the patient . Spiked fever yesterday. ID already saw the patient. Patient continue on IV vancomycin. Risks of nephrotoxicity is explained to the patient and she verbalized understanding and acceptance to continue with the antibiotic. She complains from gases and the abdomen which can be treated symptomatically. patient was unable to lift the left arm when first came in both she is able to do now. Objective - Vital Signs Vital signs: Vital Signs Temp 98.1 F 11/23/17 13:18 Pulse 80 11/23/17 13:18 Resp 16 11/23/17 13:18 BP 124/71 11/23/17 13:18 Pulse Ox 95 11/23/17 13:18 Intake & Output 11/22/17 11/23/17 11/23/17 18:59 06:59 18:59 Intake Total 500 Balance 500 Intake: Oral 500 Other: Voiding Method Toilet # Voids 2 1 3 - Exam GENERAL: The patient is alert and oriented x3, not in any acute distress. Well developed, well nourished. HEENT: Pupils are round and equally reacting to light. EOMI. No scleral icterus. No conjunctival pallor. Normocephalic, atraumatic. No pharyngeal erythema. No thyromegaly. CARDIOVASCULAR: S1 and S2 present. No murmurs, rubs, or gallops. PULMONARY: Chest is clear to auscultation, no wheezing or crackles. ABDOMEN: Soft, nontender, nondistended, normoactive bowel sounds. No palpable organomegaly. MUSCULOSKELETAL: No joint swelling or deformity. EXTREMITIES: No cyanosis, clubbing, or pedal edema. -Left axilla is warm, indurated, and pink within the demarcation line. No abnormal discharge NEUROLOGICAL: Gross neurological examination did not reveal any focal deficits. SKIN: No rashes. - Labs CBC & Chem 7: 11/23/17 11:11 11/23/17 11:11 Labs: Abnormal Lab Results - Last 24 Hours (Table) 11/23/17 11/23/17 Range/Units 11:11 11:11 RBC 3.33 L (3.80-5.40) m/uL Hgb 10.8 L (11.4-16.0) gm/dL Hct 32.7 L (34.0-46.0) % Chloride 112 H (98-107) mmol/L Carbon Dioxide 21 L (22-30) mmol/L Microbiology - Last 24 Hours (Table) 11/20/17 18:35 Blood Culture - Preliminary Blood No Growth after 48 hours Assessment and Plan Plan: -Sepsis: Secondary to left axillary cellulitis without any obvious abscess, patient was started on IV vancomycin blood cultures are so far negative. Surgery evaluated the patient, there is some new induration although redness and cellulitis appeared to have improved. Ultrasound of the left axilla shows enlarged lymph nodes, Robitussin of abscess as per report. Continue with vancomycin consul infectious disease -Hyperchloremia due to IV fluids -Mild hypotension secondary to sepsis. Resolved -Stomach upset, DC ibuprofen, and start GI prophylaxis with Protonix -DVT prophylaxis, patient is mobile, she is low risk for DVT, continue with SCDs. No anticoagulations as the risks more than benefits OT/ PT is pending
[2017-11-23] MEDS: SIMETHICONE 80 MG CHEWABLE PO PRN (18:58)
[2017-11-23] MEDS: ACETAMINOPHEN TAB 325 MG TAB PO PRN (18:58)
--- NOTE | 2017-11-23 23:37 | PN ---
PROGRESS NOTE DATE OF SERVICE: 11/23/2017 REASON FOR FOLLOWUP: Left axillary abscess and cellulitis. INTERVAL HISTORY: The patient is currently afebrile. She seems to be slightly discouraged, but denies having any chest pain or shortness of breath. Pain in the left axilla currently is slightly decreased. Tenderness has decreased as well with low-grade fever this morning. EXAMINATION: Blood pressure 121/71 with a pulse of 78, temperature 98.5. She is 96% on room air. General description is a middle-aged female up in the bed in no distress. RESPIRATORY SYSTEM: Unlabored breathing. Clear to auscultation anteriorly. HEART: S1, S2. Regular rate and rhythm. ABDOMEN: Soft. No tenderness. The left axillary swelling has slightly decreased. Redness has decreased. Slight induration. LABS: Hemoglobin is 10.1, white count 10.5 with a BUN of 9 creatinine 0.69. DIAGNOSTIC IMPRESSION AND PLAN: Patient with left axillary abscess and cellulitis. Ultrasound shows small fluid collection. Will discuss with Surgery if aspirate of that area may be warranted, at least for the culture purposes. Keep the patient on vancomycin at this point. Continue supportive care. MMODL / IJN: [id number] /
[2017-11-24] MEDS: ACETAMINOPHEN TAB 325 MG TAB PO PRN ×4 (02:54→21:29)
[2017-11-24] MEDS: VANCOMYCIN 1,000 MG in SODIUM CHLORIDE 0.9% 250 ML IVPB SCH ×3 (06:46→19:42)
[2017-11-24] MEDS: SODIUM CHLORIDE 0.9% 1,000 ML IV SCH ×3 (06:47→19:41)
[2017-11-24 07:33] LABS: Basophils % (A) 0 %; Eosinophils # (A) 0.3 k/uL (0-0.7); Eosinophils % (A) 3 %; HCT 31.1 % (34.0-46.0); Lymphocytes # (A) 1.1 k/uL (1.0-4.8); Lymphocytes % (A) 11 %; MCH 31.9 pg (25.0-35.0); MCHC 32.3 g/dL (31.0-37.0); MCV 98.5 fL (80.0-100.0); Mean Platelet Volume 6.7; Monocytes # (A) 0.4 k/uL (0-1.0); Monocytes % (A) 4 %; Neutrophils # (A) 7.8 k/uL (1.3-7.7); Neutrophils % (A) 79 %; Platelet Count 230 k/uL (150-450); RBC 3.15 m/uL (3.80-5.40); RDW 12.2 % (11.5-15.5); WBC 9.8 k/uL (3.8-10.6)
--- NOTE | 2017-11-24 08:24 | P.PN ---
Subjective 47-year-old pleasant female came in with Celexa the left axilla. Patient started developing a small lump in the left axillary on Monday started having fever chills severe tenderness severe pain about 9/10 severity sharp in nature nonradiating. Patient denied any recent insect [place] Patient was started on Zosyn. Patient did have history of C. diff colitis in the past Zosyn will be discontinued patient will be started on IV vancomycin. CAT scan of that area did not show any obvious abscesses there is a small phlegmon in that area significantly cellulitis patient has out of proportion pain but there is no necrotizing fasciaitis, or gas under the skin on the CAT scan. Patient will be monitored overnight possibility of discharge tomorrow if she improves. 11/23/2017 Patient seen and examined by me at bedside, she still have an infection in her left axilla however she feels a little bit better. Patient still has induration on her left axilla, still warm but the redness and localized of temperature significantly improved patient is on IV vancomycin. surgeries following the patient . Spiked fever yesterday. ID already saw the patient. Patient continue on IV vancomycin. Risks of nephrotoxicity is explained to the patient and she verbalized understanding and acceptance to continue with the antibiotic. She complains from gases and the abdomen which can be treated symptomatically. patient was unable to lift the left arm when first came in both she is able to do now. 11/24/2017 Patient is still have induration and redness in her left axilla. Patient spiked fever yesterday at 100.5. Patient is already on vancomycin and fluids. No leukocytosis. Patient is still have significant pain, but it is controlled with pain medication Objective - Vital Signs Vital signs: Vital Signs Temp 98.1 F 11/24/17 03:00 Pulse 94 11/24/17 03:00 Resp 18 11/24/17 03:00 BP 120/73 11/24/17 03:00 Pulse Ox 96 11/23/17 20:08 Intake & Output 11/23/17 11/24/17 11/24/17 18:59 06:59 18:59 Intake Total 500 1200 Balance 500 1200 Intake: Oral 500 1200 Other: # Voids 3 2 - Exam GENERAL: The patient is alert and oriented x3, not in any acute distress. Well developed, well nourished. HEENT: Pupils are round and equally reacting to light. EOMI. No scleral icterus. No conjunctival pallor. Normocephalic, atraumatic. No pharyngeal erythema. No thyromegaly. CARDIOVASCULAR: S1 and S2 present. No murmurs, rubs, or gallops. PULMONARY: Chest is clear to auscultation, no wheezing or crackles. ABDOMEN: Soft, nontender, nondistended, normoactive bowel sounds. No palpable organomegaly. MUSCULOSKELETAL: No joint swelling or deformity. EXTREMITIES: No cyanosis, clubbing, or pedal edema. -Left axilla is warm, indurated, and pink within the demarcation line. No abnormal discharge NEUROLOGICAL: Gross neurological examination did not reveal any focal deficits. SKIN: No rashes. - Labs CBC & Chem 7: 11/24/17 07:20 11/23/17 11:11 Labs: Abnormal Lab Results - Last 24 Hours (Table) 11/23/17 11/23/17 11/24/17 Range/Units 11:11 11:11 07:20 RBC 3.33 L 3.15 L (3.80-5.40) m/uL Hgb 10.8 L 10.0 L (11.4-16.0) gm/dL Hct 32.7 L 31.1 L (34.0-46.0) % Neutrophils # 7.8 H (1.3-7.7) k/uL Chloride 112 H (98-107) mmol/L Carbon Dioxide 21 L (22-30) mmol/L Microbiology - Last 24 Hours (Table) 11/20/17 18:35 Blood Culture - Preliminary Blood No Growth after 72 hours Assessment and Plan Plan: -Sepsis: Secondary to left axillary cellulitis without any obvious abscess, patient was started on IV vancomycin blood cultures are so far negative. Surgery evaluated the patient, there is some new induration although redness and cellulitis appeared to have improved. Ultrasound of the left axilla shows enlarged lymph nodes, no mention of abscess as per report. Continue with vancomycin and consul infectious disease is appreciated. Patient still spiking fever -Mild hypotension secondary to sepsis. Resolved -Stomach upset, DC ibuprofen, and start GI prophylaxis with Protonix, resolved -DVT prophylaxis, patient is mobile, she is low risk for DVT, continue with SCDs. No anticoagulations as the risks more than benefits, besides the patient doesn't want sane OT/ PT is pending
[2017-11-24] MEDS: CITALOPRAM HYDROBROMIDE 10 MG TAB PO SCH (08:47)
[2017-11-24] MEDS: SIMETHICONE 80 MG CHEWABLE PO PRN ×3 (08:47→21:25)
[2017-11-24] MEDS ORDERED: VANCOMYCIN TROUGH DUE 1 EACH MISC MISCELLANE ONE (19:00)
--- NOTE | 2017-11-24 23:05 | PN ---
PROGRESS NOTE DATE OF SERVICE: 11/24/2017. REASON FOR FOLLOWUP: Left axillary abscess and cellulitis. INTERVAL HISTORY: The patient is afebrile. She is breathing comfortably. Overall pain to the left axilla has improved. Some redness, but the redness overall has receded. Denies any chest pain or shortness of breath or cough. No abdominal pain. Overall feeling better. No abdominal pain. No diarrhea. EXAMINATION: Blood pressure 126/70 with a pulse of 73, temperature 98.8. She is 97% on room air. General description is a middle-aged female lying up in the bed in no distress. RESPIRATORY SYSTEM: Unlabored breathing. Clear to auscultation anteriorly. HEART: S1, S2. Regular rate and rhythm. ABDOMEN: Soft. No tenderness. LEFT AXILLAE: Overall swelling and redness have improved. No drainage. LABS: White count 9.8. BUN of 9, creatinine 0.69. DIAGNOSTIC IMPRESSION AND PLAN: Patient with left axillary abscess and cellulitis, currently covered with vancomycin that will continue for now. She needs a trough to measure if therapeutic and will re- evaluate the patient tomorrow. Continue with supportive care. MMODL / IJN: [id number] /
[2017-11-25] MEDS: ACETAMINOPHEN TAB 325 MG TAB PO PRN ×2 (03:47→12:59)
[2017-11-25] MEDS: VANCOMYCIN 1,000 MG in SODIUM CHLORIDE 0.9% 250 ML IVPB SCH (03:48)
[2017-11-25 07:47] LABS: Anion Gap 9 mmol/L; Blood Urea Nitrogen 11 mg/dL (7-17); Calcium 8.8 mg/dL (8.4-10.2); Carbon Dioxide 22 mmol/L (22-30); Chloride 112 mmol/L (98-107); Glucose 84 mg/dL (74-99); Potassium 4.1 mmol/L (3.5-5.1); Sodium 143 mmol/L (137-145)
[2017-11-25 07:54] LABS: Basophils % (A) 1 %; Eosinophils # (A) 0.5 k/uL (0-0.7); Eosinophils % (A) 6 %; HCT 31.5 % (34.0-46.0); HGB 10.3 gm/dL (11.4-16.0); Lymphocytes # (A) 1.2 k/uL (1.0-4.8); Lymphocytes % (A) 15 %; MCH 31.9 pg (25.0-35.0); MCHC 32.6 g/dL (31.0-37.0); MCV 98.1 fL (80.0-100.0); Mean Platelet Volume 7.1; Monocytes # (A) 0.5 k/uL (0-1.0); Monocytes % (A) 7 %; Neutrophils # (A) 5.5 k/uL (1.3-7.7); Neutrophils % (A) 70 %; Platelet Count 284 k/uL (150-450); RBC 3.21 m/uL (3.80-5.40); RDW 12.2 % (11.5-15.5); WBC 7.9 k/uL (3.8-10.6)
[2017-11-25 08:40] VITALS: BP 131/70; PULSE 63; RESP 18; TEMP 97.6
[2017-11-25] MEDS: CITALOPRAM HYDROBROMIDE 10 MG TAB PO SCH (08:40)
[2017-11-25] MEDS: SODIUM CHLORIDE 0.9% 1,000 ML IV SCH ×2 (08:59→12:00)
--- NOTE | 2017-11-25 10:55 | P.PN ---
Subjective 47-year-old pleasant female came in with Celexa the left axilla. Patient started developing a small lump in the left axillary on Monday started having fever chills severe tenderness severe pain about 9/10 severity sharp in nature nonradiating. Patient denied any recent insect [place] Patient was started on Zosyn. Patient did have history of C. diff colitis in the past Zosyn will be discontinued patient will be started on IV vancomycin. CAT scan of that area did not show any obvious abscesses there is a small phlegmon in that area significantly cellulitis patient has out of proportion pain but there is no necrotizing fasciaitis, or gas under the skin on the CAT scan. Patient will be monitored overnight possibility of discharge tomorrow if she improves. 11/23/2017 Patient seen and examined by me at bedside, she still have an infection in her left axilla however she feels a little bit better. Patient still has induration on her left axilla, still warm but the redness and localized of temperature significantly improved patient is on IV vancomycin. surgeries following the patient . Spiked fever yesterday. ID already saw the patient. Patient continue on IV vancomycin. Risks of nephrotoxicity is explained to the patient and she verbalized understanding and acceptance to continue with the antibiotic. She complains from gases and the abdomen which can be treated symptomatically. patient was unable to lift the left arm when first came in both she is able to do now. 11/24/2017 Patient is still have induration and redness in her left axilla. Patient spiked fever yesterday at 100.5. Patient is already on vancomycin and fluids. No leukocytosis. Patient is still have significant pain, but it is controlled with pain medication 11/25/2017 Patient still improving. She can move her left upper extremity better. Patient spiked fever last 2 days at 100+.There is less pain and redness of her left armpit however the area still indurated and bumpy Objective - Vital Signs Vital signs: Vital Signs Temp 97.6 F 11/25/17 07:00 Pulse 63 11/25/17 07:00 Resp 18 11/25/17 07:00 BP 131/70 11/25/17 07:00 Pulse Ox 96 11/25/17 07:00 Intake & Output 11/24/17 11/25/17 11/25/17 18:59 06:59 18:59 Intake Total 500 Balance 500 Intake: Oral 500 Other: Voiding Method Toilet # Voids 2 1 - Exam GENERAL: The patient is alert and oriented x3, not in any acute distress. Well developed, well nourished. HEENT: Pupils are round and equally reacting to light. EOMI. No scleral icterus. No conjunctival pallor. Normocephalic, atraumatic. No pharyngeal erythema. No thyromegaly. CARDIOVASCULAR: S1 and S2 present. No murmurs, rubs, or gallops. PULMONARY: Chest is clear to auscultation, no wheezing or crackles. ABDOMEN: Soft, nontender, nondistended, normoactive bowel sounds. No palpable organomegaly. MUSCULOSKELETAL: No joint swelling or deformity. EXTREMITIES: No cyanosis, clubbing, or pedal edema. -Left axilla is warm, indurated, and Lasix pink . No abnormal discharge NEUROLOGICAL: Gross neurological examination did not reveal any focal deficits. SKIN: No rashes. - Labs CBC & Chem 7: 11/25/17 06:31 11/25/17 06:31 Labs: Abnormal Lab Results - Last 24 Hours (Table) 11/25/17 11/25/17 Range/Units 06:31 06:31 RBC 3.21 L (3.80-5.40) m/uL Hgb 10.3 L (11.4-16.0) gm/dL Hct 31.5 L (34.0-46.0) % Chloride 112 H (98-107) mmol/L Microbiology - Last 24 Hours (Table) 11/20/17 18:35 Blood Culture - Preliminary Blood No Growth after 96 hours Assessment and Plan Plan: -Sepsis: Secondary to left axillary cellulitis without any obvious abscess, patient was started on IV vancomycin blood cultures are so far negative. Surgery evaluated the patient, there is some new induration although redness and cellulitis appeared to have improved. Ultrasound of the left axilla shows enlarged lymph nodes, no mention of abscess as per report. Continue with vancomycin and consul infectious disease is appreciated. Patient still spiking fever -Mild hypotension secondary to sepsis. Resolved -Stomach upset, DC ibuprofen, and start GI prophylaxis with Protonix, resolved -DVT prophylaxis, patient is mobile, she is low risk for DVT, continue with SCDs. No anticoagulations as the risks more than benefits, besides the patient doesn't want sane OT/ PT is home with no therapy
[2017-11-25] MEDS: SIMETHICONE 80 MG CHEWABLE PO PRN (13:00)
--- NOTE | 2017-11-25 15:13 | P.DS ---
Providers Date of admission: 11/20/17 19:48 Attending physician: Clarita Machuca Consults: 11/21/17 11:02 Consult Physician Routine Consulting Provider: Corina Bull Consult Reason/Comments: AXILLARY ABCESS Do you want consulting provider notified?: Yes 11/22/17 09:24 Consult Physician Routine Consulting Provider: Ese Kaur Consult Reason/Comments: Cellulitis axilla Do you want consulting provider notified?: Yes Primary care physician: [facility] Course: 47-year-old pleasant female came in with Celexa the left axilla. Patient started developing a small lump in the left axillary on Monday started having fever chills severe tenderness severe pain about 9/10 severity sharp in nature nonradiating. Patient denied any recent [place] Patient was started on Zosyn. Patient did have history of C. diff colitis in the past Zosyn will be discontinued patient will be started on IV vancomycin. CAT scan of that area did not show any obvious abscesses there is a small phlegmon in that area significantly cellulitis patient. Patient has been evaluated by surgical and infectious disease consultants. Patient showed interval improvement with 6 significant decrease in her cellulitis area regarding this redness less hotness and this is swelling. However some persistent induration in the area. Clinically patient is doing much better and she can move her upper extremity more freely however there is some still restrictions but improving. Patient she feels happy with her progress and she feels can be discharged today. Patient has been evaluated by infectious diseases specialist today and he cleared her for discharge on oral Bactrim which was provided to her by prescription. Patient Still low-grade fever, however see improvement and abscess has been ruled out and Surgical team already signed off the case B/is going to be discharged on oral antibiotics with close follow-up as an outpatient. Patient telling me she has appointment with her PCP in this coming Monday, and a appointment with ID office that she intend to follow-up Patient problems and management plan was discussed with the patient and she verbalized understanding and acceptance, at bedside upon patient request Patient is found stable and can be discharged home however she needs follow-up as an outpatient Please refer to today's note for Physical examination time spent more than 35 minutes Patient Condition at Discharge: Good Plan - Discharge Summary Discharge Rx Participant: Yes New Discharge Prescriptions: New Sulfamethox-Tmp 800-160Mg [Bactrim DS 800-160 mg] 1 tab PO Q12HR #20 tab Acetaminophen Tab [Tylenol] 650 mg PO Q6HR PRN tab PRN Reason: Mild Pain Or Fever > 100.5 Continue Citalopram Hydrobromide [CeleXA] 30 mg PO DAILY Ferrous Sulfate [Iron (65 MG Elemental)] 325 mg PO DAILY Cholecalciferol [Vitamin D3] 5,000 unit PO DAILY Vitamin B Complex 1 cap PO DAILY Fish Oil/Dha/Epa [Fish Oil 1,200 mg Fish Oil] 1 cap PO DAILY Discharge Medication List Citalopram Hydrobromide [CeleXA] 30 mg PO DAILY 11/10/17 [History] Cholecalciferol [Vitamin D3] 5,000 unit PO DAILY 11/20/17 [History] Ferrous Sulfate [Iron (65 MG Elemental)] 325 mg PO DAILY 11/20/17 [History] Fish Oil/Dha/Epa [Fish Oil 1,200 mg Fish Oil] 1 cap PO DAILY 11/20/17 [History] Vitamin B Complex 1 cap PO DAILY 11/20/17 [History] Acetaminophen Tab [Tylenol] 650 mg PO Q6HR PRN tab 11/25/17 [Rx] Sulfamethox-Tmp 800-160Mg [Bactrim DS 800-160 mg] 1 tab PO Q12HR #20 tab [Rx] Follow up Appointment(s)/Referral(s): Hugo Cartwright MD [Primary Care Provider] - 12/02/17 12:40 pm Ese Kaur MD [STAFF PHYSICIAN] - 12/04/17 1:30 pm (This appointment was made for the [place] office. [address] [facility]) Activity/Diet/Wound Care/Special Instructions: Resume previous diet Activity as tolerated Discharge Disposition: HOME SELF-CARE
--- NOTE | 2017-11-25 17:48 | PN ---
PROGRESS NOTE DATE OF SERVICE: 11/25/2017. REASON FOR FOLLOWUP: Left axillary abscess and cellulitis. INTERVAL HISTORY: The patient was seen on rounds early this afternoon. The patient has been afebrile. Overall pain and swelling to the left axillary area has improved. Denies having any chest pain, shortness of breath, abdominal pain, cough, abdominal pain or any diarrhea. EXAMINATION: Blood pressure 131/70 with a pulse of 63. Temp 97.6. She is 96% on room air. General description is a middle-aged female up in the room in no distress. Respiratory system: Unlabored breathing. Clear to auscultation anteriorly. Heart S1, S2. Regular rate and rhythm. Abdomen soft, no tenderness. The left overall swelling has improved. Minimal induration and no drainage. LABS: White count normal 7.9, BUN of 11, creatinine 0.69. DIAGNOSTIC IMPRESSION AND PLAN: Patient with left axillary abscess and cellulitis of the to be drained. The patient at this time can be switched over to Bactrim DS 1 twice a day for another 10 days. Prescription was sent to the pharmacy with close outpatient followup. Patient will be instructed if any fever, worsening pain to the left axillary area to let us know right away. Continue supportive care. MMODL / IJN: [id number] /
[2017-11-25] MEDS ORDERED: VANCOMYCIN 1,000 MG in SODIUM CHLORIDE 0.9% 250 ML IVPB SCH (18:00)
== END 2017-11-25 15:14 | disposition home or self-care (01) | DRG 872 ==
LOC: EC 17:54 → 6PED 19:48
PROVIDERS: ADMIT Hospitalist; ATTEND Hospitalist
DX: A41.9 Sepsis, unspecified organism (principal); L02.412 Cutaneous abscess of left axilla; L03.112 Cellulitis of left axilla; E78.00 Pure hypercholesterolemia, unspecified; E87.8 Other disorders of electrolyte and fluid balance, not elsewhere classified; F32.9 Major depressive disorder, single episode, unspecified; F41.9 Anxiety disorder, unspecified; R59.9 Enlarged lymph nodes, unspecified; Z79.899 Other long term (current) drug therapy; Z90.49 Acquired absence of other specified parts of digestive tract; K30 Functional dyspepsia; T39.315A Adverse effect of propionic acid derivatives, initial encounter; Z86.19 Personal history of other infectious and parasitic diseases; Z82.3 Family history of stroke; Z82.49 Family history of ischemic heart disease and other diseases of the circulatory system; Z85.9 Personal history of malignant neoplasm, unspecified; Y92.239 Unspecified place in hospital as the place of occurrence of the external cause
CPT/HCPCS: 36415; 71260; 80048; 80053; 80202; 81001; 83605; 85025; 85027; 87040; 96361; 96365; 96375; 99284

== ENCOUNTER → 2018-04-10 | Outpatient (CLI) | payer OTHER ==
[2018-04-10 10:00] LABS: Amorphous Sediment,Urine Few /hpf; Appearance,Urine Cloudy (Clear); Bilirubin,Urine Negative (Negative); Blood,Urine Negative (Negative); Color,Urine Yellow; Glucose,Urine (UA) Negative (Negative); Ketones,Urine Negative (Negative); Leukocyte Esterase,Urine Negative (Negative); Mucus,Urine Rare /hpf; Nitrite,Urine Negative (Negative); PH, Urine 7.5 (5.0-8.0); Protein,Urine Negative (Negative); Specific Gravity,Urine 1.015 (1.001-1.035); Squamous Epithelial Cell,Urine <1 /hpf (0-4); Urobilinogen,Urine <2.0 mg/dL (<2.0)
[2018-04-10 10:05] LABS: HGB 13.2 gm/dL (11.4-16.0); MCH 32.1 pg (25.0-35.0); MCV 97.3 fL (80.0-100.0); Mean Platelet Volume 6.5; Platelet Count 253 k/uL (150-450); RBC 4.11 m/uL (3.80-5.40); RDW 12.3 % (11.5-15.5); WBC 4.3 k/uL (3.8-10.6)
[2018-04-10 18:16] LABS: Albumin 4.2 g/dL (3.80-4.90); Anion Gap 6.5 mmol/L (4.00-12.00); Calcium 9.4 mg/dL (8.7-10.3); Carbon Dioxide 25.5 mmol/L (21.6-31.8); Globulin 2.1 g/dL (2.1-3.7); LDL Cholesterol,Calculated 162.6 mg/dL (0.0-131.0); Potassium 4.6 mmol/L (3.5-5.5); Total Bilirubin 0.5 mg/dL (0.2-1.2); Total Protein 6.3 g/dL (6.2-8.2); VLDL Calculation 15.4 mg/dL (5.00-40.00)
== END | disposition home or self-care (01) ==
LOC: LABWHC1 08:32
PROVIDERS: ATTEND Family Medicine
DX: Z00.00 Encounter for general adult medical examination without abnormal findings (principal); Z13.9 Encounter for screening, unspecified
CPT/HCPCS: 36415; 80053; 80061; 81001; 85027; 86803

== ENCOUNTER → 2019-06-10 | Outpatient (CLI) | payer BC ==
[2019-06-10 08:47] LABS: HCT 41.1 % (34.0-46.0); HGB 13.8 gm/dL (11.4-16.0); MCH 33.2 pg (25.0-35.0); MCHC 33.6 g/dL (31.0-37.0); MCV 98.7 fL (80.0-100.0); Platelet Count 278 k/uL (150-450); RBC 4.17 m/uL (3.80-5.40); RDW 11.8 % (11.5-15.5); WBC 4.5 k/uL (3.8-10.6)
[2019-06-10 09:07] LABS: Appearance,Urine Clear (Clear); Bilirubin,Urine Negative (Negative); Blood,Urine Negative (Negative); Color,Urine Yellow; Glucose,Urine (UA) Negative (Negative); Ketones,Urine Negative (Negative); Leukocyte Esterase,Urine Trace (Negative); Mucus,Urine Rare /hpf; Nitrite,Urine Negative (Negative); Protein,Urine Negative (Negative); Specific Gravity,Urine 1.016 (1.001-1.035); Squamous Epithelial Cell,Urine <1 /hpf (0-4); Urobilinogen,Urine <2.0 mg/dL (<2.0); WBC,Urine 1 /hpf (0-5)
[2019-06-10 16:12] LABS: African American GFR (CKD) 71.4 (60.0-200.0); Albumin 4.4 g/dL (3.80-4.90); Albumin/Globulin Ratio 2.1 (1.60-3.17); Anion Gap 4.9 mmol/L (4.00-12.00); Calcium 9.8 mg/dL (8.7-10.3); Carbon Dioxide 26.1 mmol/L (21.6-31.8); Chol/HDL Ratio 3.83; Globulin 2.1 g/dL (1.6-3.3); LDL Cholesterol,Calculated 202.8 mg/dL (0.0-131.0); Non-African American GFR(CKD) 61.6 (60.0-200.0); Potassium 4.3 mmol/L (3.5-5.5); Total Bilirubin 0.6 mg/dL (0.2-1.2); Total Protein 6.5 g/dL (6.2-8.2); VLDL Calculation 18.2 mg/dL (5.00-40.00)
== END | disposition home or self-care (01) ==
LOC: LABWHC1 08:07
PROVIDERS: ATTEND Family Medicine
DX: Z00.00 Encounter for general adult medical examination without abnormal findings (principal)
CPT/HCPCS: 36415; 80053; 80061; 81001; 85027

== ENCOUNTER → 2020-05-22 | Day surgery (SDC) | payer BC, OTHER ==
[2020-05-21 10:22] VITALS: BMI 23.5
[~2020-05-22] MED LIST: LACTATED RINGERS 1,000 ML IV ONE; LACTATED RINGERS 1,000 ML IV SCH; LIDOCAINE 1% (10MG/ML) FOR IV START INTRADERMA ONE; LIDOCAINE 1% INJ 10MG/ML (20 ML MDV) ONE; PROPOFOL 10 MG/ML 20 ML VIAL IV ONE
[2020-05-22 11:16] VITALS: TEMP 97.8
--- NOTE | 2020-05-22 12:39 | P.PCN ---
Date of Procedure: 05/22/20 Procedure(s) Performed: BRIEF HISTORY: Patient is a 60-year-old pleasant male scheduled for an elective colonoscopy as a part of screening for colorectal neoplasia. PROCEDURE PERFORMED: Colonoscopy. PREOPERATIVE DIAGNOSIS: Screening for colon cancer. IV sedation per Anesthesia. PROCEDURE: After informed consent was obtained, the patient, was brought into the endoscopy unit. IV sedation was administered by Anesthesia under continuous monitoring. Digital rectal examination was normal. Initially the Olympus CF-160 flexible video colonoscope was then inserted in the rectum, gradually advanced into the cecum without any difficulty. Careful examination was performed as the scope was gradually being withdrawn. Ileocecal valve and the appendiceal orifice were visualized and appeared normal. Prep was fair. Some sticky still noted throughout the colon which was irrigated.. Mucosa of the cecum, ascending colon, transverse colon, descending colon, sigmoid colon, and rectum appeared normal. Retroflexion was performed in the rectum and no lesions were seen. The patient tolerated the procedure well. IMPRESSION: Normal-appearing colon from rectum to cecum no evidence of colorectal neoplasia. RECOMMENDATIONS: Findings of this examination were discussed with the patient as well as a family. She was advised to have a repeat screening colonoscopy in 10 years.
[2020-05-22 12:43] VITALS: RESP 17
[2020-05-22 12:57] VITALS: PULSE 88
[2020-05-22 13:06] VITALS: BP 104/68
== END ==
LOC: ORWHC2ENDO 10:30
PROVIDERS: ATTEND Internal Medicine Gastroenterology
DX: Z12.11 Encounter for screening for malignant neoplasm of colon (principal); E78.5 Hyperlipidemia, unspecified; F41.9 Anxiety disorder, unspecified; F32.9 Major depressive disorder, single episode, unspecified; Z79.899 Other long term (current) drug therapy
CPT/HCPCS: J2001; J2704; G0121; 45378

== ENCOUNTER → 2020-06-09 | Outpatient (CLI) | payer BC | END | disposition home or self-care (01) | LOC: LABPAT 11:27 | PROVIDERS: ATTEND Surgery | DX: Z01.818 Encounter for other preprocedural examination (principal); K43.2 Incisional hernia without obstruction or gangrene | CPT/HCPCS: 93005 ==

== ENCOUNTER 2020-06-15 08:01 | Day surgery (SDC) | payer BC, OTHER ==
[2020-06-08 10:22] VITALS: BMI 22.8
[~2020-06-15 08:01] MED LIST changes: +ACETAMINOPHEN TAB 500 MG TAB PO PRN; +DEXAMETHASONE SOD PHOSPHATE 4 MG/ML 1 ML VIAL IV ONE; +HEPARIN SODIUM,PORCINE 5,000 UNIT/ML 1 ML VIAL SQ PRN; +HYDROmorphone 0.5 MG/0.5 ML SYRINGE IVP PRN; -LACTATED RINGERS 1,000 ML IV ONE; -LIDOCAINE 1% (10MG/ML) FOR IV START INTRADERMA ONE; -LIDOCAINE 1% INJ 10MG/ML (20 ML MDV) ONE; +ONDANSETRON 4 MG/2 ML VIAL IVP ONE; -PROPOFOL 10 MG/ML 20 ML VIAL IV ONE
--- NOTE | 2020-06-15 08:51 | P.GSHP ---
History of Present Illness H&P Date: 06/15/20 Chief Complaint: Ventral hernia Patient here today for elective repair ventral hernia. Patient has been seen in the office previously. Describes an increasing size bulge above the umbilicus. Mild pain at times. History of previous laparoscopic cholecystectomy. No scars in the vicinity of the hernia itself however. Past Medical History Past Medical History: Hyperlipidemia Additional Past Medical History / Comment(s): hernia History of Any Multi-Drug Resistant Organisms: C-DIFF Date of last positivie culture/infection: 2009 MDRO Source:: stool Past Surgical History: Cholecystectomy Additional Past Surgical History / Comment(s): tubal ,trigger thumb repair Past Anesthesia/Blood Transfusion Reactions: No Reported Reaction Additional Psychological History / Comment(s): No current depression, takes meds for post menapausal depression. Additional Past Alcohol Use History / Comment(s): quit smoking ,<1ppd - Past Family History Father Family Medical History: Cancer, CVA/TIA, Hypertension, Thyroid Disorder Additional Family Medical History / Comment(s): stroke Mother Additional Family Medical History / Comment(s): Cholecysectomy. Medications and Allergies Home Medications Medication Instructions Recorded Confirmed Type Citalopram Hydrobromide [CeleXA] 20 mg PO QAM 11/10/17 06/08/20 History Cholecalciferol [Vitamin D3 (25 5,000 unit PO DAILY 11/20/17 06/08/20 History Mcg = 1000 Iu)] Ferrous Sulfate [Iron (65 MG 325 mg PO DAILY 11/20/17 06/08/20 History Elemental)] Vitamin B Complex 1 cap PO DAILY 11/20/17 06/08/20 History Allergies Allergy/AdvReac Type Severity Reaction Status Date / Time No Known Allergies Allergy Verified 06/15/20 08:38 Surgical - Exam Vital Signs Temp Pulse Resp BP Pulse Ox 98.5 F 63 16 129/64 98 06/15/20 08:36 06/15/20 08:36 06/15/20 08:36 06/15/20 08:36 06/15/20 08:36 Physical exam: General: Well-developed, well-nourished HEENT: Normocephalic, sclerae nonicteric Abdomen: Nontender, nondistended, incarcerated ventral hernia 3 cm above umbilicus Extremities: No edema Neuro: Alert and oriented Assessment and Plan (1) Incarcerated ventral hernia Narrative/Plan: Will proceed with open repair with mesh incarcerated ventral hernia. Ri Risks of bleeding, infection, recurrence, bladder and bowel injury, numbness, nerve injury were discussed with the patient. The patient understands and wishes to proceed. Current Visit: Yes Status: Acute Code(s): K43.6 - OTHER AND UNSP VENTRAL HERNIA WITH OBSTRUCTION, W/O GANGRENE SNOMED Code(s): 467476008
[2020-06-15] MEDS ORDERED: MIDAZOLAM 2 MG/2 ML VIAL ONE (09:35)
[2020-06-15] MEDS ORDERED: NEOSTIGMINE 1 MG/ML 10 ML VIAL ONE (09:35)
[2020-06-15] MEDS ORDERED: PROPOFOL 10 MG/ML 20 ML VIAL IV ONE (09:35)
[2020-06-15] MEDS ORDERED: GLYCOPYRROLATE 0.2 MG/ML 2 ML VIAL ONE (09:35)
[2020-06-15] MEDS ORDERED: SUCCINYLCHOLINE CHLORIDE 100 MG/5 ML SYR IV ONE (09:35)
[2020-06-15] MEDS ORDERED: ROCURONIUM 10 MG/ML (10 ML VIAL) IV ONE (09:35)
[2020-06-15] MEDS ORDERED: LIDOCAINE 1% INJ 10MG/ML (20 ML MDV) ONE (09:35)
[2020-06-15] MEDS ORDERED: fentaNYL (PF) 50 MCG/ML 2 ML AMP ONE (09:35)
[2020-06-15] MEDS ORDERED: BUPIVACAINE (PF) 0.25% 30 ML VIAL SQ ONE ×2 (09:54)
[2020-06-15 10:36] VITALS: TEMP 98.3
--- NOTE | 2020-06-15 10:45 | P.OP ---
Date of Procedure: 06/15/20 Procedure(s) Performed: PREOPERATIVE DIAGNOSIS: Incarcerated ventral hernia POSTOPERATIVE DIAGNOSIS: Same PROCEDURE: Incarcerated the ventral hernia repair with mesh SURGEON: Kaye EBL: Minimal ANESTHESIA: Gen. COMPLICATIONS: None OPERATIVE PROCEDURE: Patient placed on the operating table in the supine posi tion. Abdomen was prepped and draped in usual sterile fashion. A vertical incision was then made superior to the umbilicus by approximately 3 cm. Dissection through the subcutaneous tissues took place using electrocautery. The patient had a single fascial defect measuring approximately 8-9 mm in diameter. The hernia sac itself was easily reduced back into the preperitoneal space. The preperitoneal space was then carefully dissected using both blunt dissection and cautery. We were able to avoid entrance into the peritoneal cavity. The 4.3 cm ventral ex mesh was placed in the preperitoneal space and sutured to the fascia using trans-fascial 0 Ethibond sutures. Following that the midline fascia was reapproximated using interrupted 0 Ethibond mattress sutures. The subcutaneous tissues were closed using 3-0 Vicryl sutures. The skin was closed using a running 4-0 Monocryl suture. Skin glue and sterile dressings were applied. DISPOSITION: Stable to recovery room
[2020-06-15 11:32] VITALS: RESP 20
[2020-06-15] MEDS ORDERED: ACETAMINOPHEN TAB 325 MG TAB PO SCH (12:00)
[2020-06-15 12:17] VITALS: BP 119/78; PULSE 54
[2020-06-15] MEDS ORDERED: IBUPROFEN 600 MG TAB PO SCH (13:41)
== END 2020-06-15 12:43 | disposition home or self-care (01) ==
LOC: OR 08:01
PROVIDERS: ATTEND Surgery
DX: K43.6 Other and unspecified ventral hernia with obstruction, without gangrene (principal); E78.5 Hyperlipidemia, unspecified; Z87.891 Personal history of nicotine dependence; D64.9 Anemia, unspecified; F32.9 Major depressive disorder, single episode, unspecified; F41.9 Anxiety disorder, unspecified; Z82.3 Family history of stroke; Z86.19 Personal history of other infectious and parasitic diseases; Z98.890 Other specified postprocedural states; Z90.49 Acquired absence of other specified parts of digestive tract; Z82.49 Family history of ischemic heart disease and other diseases of the circulatory system; Z80.0 Family history of malignant neoplasm of digestive organs; Z80.8 Family history of malignant neoplasm of other organs or systems; Z79.899 Other long term (current) drug therapy
CPT/HCPCS: 49561; 49568; C1781; J2250; J1644; J1100; J2710; J0690; J2405; J2001; J3010; J0330; J2704; J1170

== ENCOUNTER → 2020-07-24 | Outpatient (CLI) | payer BC ==
[2020-07-24 15:06] LABS: HGB 12.6 g/dL (12.0-15.0); MCH 32.1 pg (27.0-32.0); MCHC 32.3 g/dL (32.0-37.0); MCV 99.5 fL (80.0-97.0); Mean Platelet Volume 9.8 fL (9.5-12.2); Platelet Count 259 X 10*3/uL (140-440); RBC 3.92 X 10*6/uL (4.10-5.20); RDW 11.9 % (11.5-14.5); WBC 4.31 X 10*3/uL (4.50-10.00)
[2020-07-24 15:31] LABS: African American GFR (CKD) 70.9 (60.0-200.0); Albumin 4.4 g/dL (3.80-4.90); Albumin/Globulin Ratio 2.2 (1.60-3.17); Anion Gap 4.4 mmol/L (4.00-12.00); Calcium 9.3 mg/dL (8.7-10.3); Carbon Dioxide 27.6 mmol/L (21.6-31.8); Chol/HDL Ratio 3.64; LDL Cholesterol,Calculated 168.2 mg/dL (0.0-131.0); Non-African American GFR(CKD) 61.2 (60.0-200.0); Potassium 4.6 mmol/L (3.5-5.5); Total Bilirubin 0.7 mg/dL (0.3-1.2); Total Protein 6.4 g/dL (6.2-8.2); VLDL Calculation 13.8 mg/dL (5.00-40.00)
== END | disposition home or self-care (01) ==
LOC: LABWHC1 10:27
PROVIDERS: ATTEND Family Medicine
DX: Z00.00 Encounter for general adult medical examination without abnormal findings (principal)
CPT/HCPCS: 36415; 80053; 80061; 85027

== ENCOUNTER 2020-09-09 12:51 | Emergency (ER) | payer BC ==
--- NOTE | 2020-09-09 14:57 | XR ---
EXAMINATION TYPE: XR chest 2V DATE OF EXAM: 09/09/2020 COMPARISON: NONE TECHNIQUE: PA and lateral views submitted. HISTORY: Shortness of breath FINDINGS: There are bilateral patchy infiltrates greater on the left compatible with diffuse pneumonia. Hyperin flation noted. Biapical pleural thickening. Diffuse osteopenia. No pleural effusion or pneumothorax. Heart size stable. IMPRESSION: 1. Patchy bilateral areas of infiltrate
[2020-09-09] MEDS ORDERED: SODIUM CHLORIDE 0.9% 1,000 ML IV STA (15:31)
[2020-09-09] MEDS ORDERED: ACETAMINOPHEN TAB 325 MG TAB PO STA (15:31)
[2020-09-09] MEDS ORDERED: IBUPROFEN 600 MG TAB PO STA (15:31)
--- NOTE | 2020-09-09 15:33 | ED ---
SOB HPI - General Chief Complaint: Shortness of Breath Stated Complaint: fatigue,cough,SOB,COVID + Time Seen by Provider: 09/09/20 14:59 Source: patient, RN notes reviewed Mode of arrival: wheelchair Limitations: no limitations - History of Present Illness Initial Comments: Patient is a 60-year-old female that presents to the emergency Department that i s Covid-positive for approximately 13-14 days. She notes that she tried avoiding coming to the hospital but over the last several days has been feeling more rundown and she notes that she had 1000 that she needs to shower and do something. She noted she can emergency room to get reevaluated. She denied any increase in shortness of breath or cough. She was well-appearing while laying in bed during exam and interview. She denied any chest pain headache nausea vomiting constipation fever fatigue chills. - Related Data Home Medications Medication Instructions Recorded Confirmed Citalopram Hydrobromide [CeleXA] 20 mg PO QAM 11/10/17 06/08/20 Cholecalciferol [Vitamin D3 (25 5,000 unit PO DAILY 11/20/17 06/08/20 Mcg = 1000 Iu)] Ferrous Sulfate [Iron (65 MG 325 mg PO DAILY 11/20/17 06/08/20 Elemental)] Vitamin B Complex 1 cap PO DAILY 11/20/17 06/08/20 Previous Rx's Medication Instructions Recorded oxyCODONE HCL [OxyIR] 5 mg PO Q6H PRN 3 Days #6 tab 06/15/20 Ascorbic Acid [Vitamin C] 1,000 mg PO DAILY 30 Days #30 09/09/20 tablet Cholecalciferol (Vitamin D3) 4,000 unit PO DAILY 30 Days #30 09/09/20 [Vitamin D3 (4,000 Iu)] capsule Allergies Allergy/AdvReac Type Severity Reaction Status Date / Time No Known Allergies Allergy Verified 09/09/20 13:49 Review of Systems ROS Statement: Those systems with pertinent positive or pertinent negative responses have been documented in the HPI. ROS Other: All systems not noted in ROS Statement are negative. Past Medical History Past Medical History: Hyperlipidemia Additional Past Medical History / Comment(s): hernia History of Any Multi-Drug Resistant Organisms: C-DIFF Date of last positivie culture/infection: 2009 MDRO Source:: stool Past Surgical History: Cholecystectomy Additional Past Surgical History / Comment(s): tubal ,trigger thumb repair Past Anesthesia/Blood Transfusion Reactions: No Reported Reaction Past Psychological History: Anxiety, Depression Smoking Status: Former smoker Past Alcohol Use History: Occasional Past Drug Use History: None Reported - Past Family History Father Family Medical History: Cancer, CVA/TIA, Hypertension, Thyroid Disorder Additional Family Medical History / Comment(s): stroke Mother Additional Family Medical History / Comment(s): Cholecysectomy. General Exam Limitations: no limitations General appearance: alert, in no apparent distress Head exam: Present: atraumatic, normocephalic, normal inspection Eye exam: Present: normal appearance, PERRL, EOMI. Absent: scleral icterus, conjunctival injection, periorbital swelling Neck exam: Present: normal inspection. Absent: tenderness, meningismus, lymphadenopathy Respiratory exam: Present: normal lung sounds bilaterally. Absent: respiratory distress, wheezes, rales, rhonchi, stridor Cardiovascular Exam: Present: regular rate, normal rhythm, normal heart sounds. Absent: systolic murmur, diastolic murmur, rubs, gallop, clicks GI/Abdominal exam: Present: soft, normal bowel sounds. Absent: distended, tenderness, guarding, rebound, rigid Extremities exam: Present: normal inspection, full ROM, normal capillary refill. Absent: tenderness, pedal edema, joint swelling, calf tenderness Neurological exam: Present: alert, oriented X3, CN II-XII intact Psychiatric exam: Present: normal affect, normal mood Skin exam: Present: warm, dry, intact, normal color. Absent: rash Course Vital Signs 09/09/20 13:46 Temperature 99.0 F Pulse Rate 104 H Respiratory 17 Rate Blood Pressure 105/69 O2 Sat by Pulse 96 Oximetry Medical Decision Making - Medical Decision Making Patient is a 60-year-old female that presents to emergency department almost 2 weeks after having Covid symptoms and testing positive. Chest x-ray, EKG, 1 L normal saline, 650 mg of Tylenol and 600 mg of Motrin ordered. Labs unremarkable. 6 mg of Decadron ordered IV. Case discussed with Dr. Leon, can discharge home with follow-up to primary care. - Lab Data Result diagrams: 09/09/20 16:22 09/09/20 16:22 Lab Results 09/09/20 09/09/20 Range/Units 16:22 16:22 WBC 3.3 L (3.8-10.6) k/uL RBC 4.33 (3.80-5.40) m/uL Hgb 14.4 (11.4-16.0) gm/dL Hct 41.3 (34.0-46.0) % MCV 95.3 (80.0-100.0) fL MCH 33.3 (25.0-35.0) pg MCHC 35.0 (31.0-37.0) g/dL RDW 12.3 (11.5-15.5) % Plt Count 276 (150-450) k/uL MPV 7.3 Neutrophils % 72 % Lymphocytes % 19 % Monocytes % 6 % Eosinophils % 0 % Basophils % 1 % Neutrophils # 2.4 (1.3-7.7) k/uL Lymphocytes # 0.6 L (1.0-4.8) k/uL Monocytes # 0.2 (0-1.0) k/uL Eosinophils # 0.0 (0-0.7) k/uL Basophils # 0.0 (0-0.2) k/uL Sodium 137 (137-145) mmol/L Potassium 4.9 (3.5-5.1) mmol/L Chloride 102 (98-107) mmol/L Carbon Dioxide 24 (22-30) mmol/L Anion Gap 11 mmol/L BUN 16 (7-17) mg/dL Creatinine 0.67 (0.52-1.04) mg/dL Est GFR (CKD-EPI)AfAm >90 (>60 ml/min/1.73 sqM) Est GFR (CKD-EPI)NonAf >90 (>60 ml/min/1.73 sqM) Glucose 92 (74-99) mg/dL Calcium 9.5 (8.4-10.2) mg/dL - EKG Data -: EKG Interpreted by Sc EKG shows normal: sinus rhythm Rate: normal EKG Comments: Ventricular rate 88 bpm, GA interval 138 ms, QRS duration 74 male segs, QT/QTC 370/427 ms, PRT axes 67/58/68. Normal sinus rhythm, possible left atrial enlargement, borderline ECG. - Radiology Data Radiology results: report reviewed, image reviewed Chest x-ray: Patchy bilateral areas of infiltrate. Disposition Clinical Impression: Pneumonia due to COVID-19 virus Disposition: HOME SELF-CARE Condition: Stable Instructions (If sedation given, give patient instructions): Coronavirus Disease 2019 (COVID-19) Additional Instructions: Please return to the Emergency Department if symptoms worsen or any other concerns. Continue at home conservative manner with Tylenol Motrin for fever aches and pains. Take prescriptions as prescribed, vitamin D and vitamin C sent to pharmacy. Follow-up primary care in 3-5 days. Prescriptions: Ascorbic Acid [Vitamin C] 1,000 mg PO DAILY 30 Days #30 tablet Cholecalciferol (Vitamin D3) [Vitamin D3 (4,000 Iu)] 4,000 unit PO DAILY 30 Days #30 capsule Is patient prescribed a controlled substance at d/c from ED?: No Referrals: Hugo Cartwright MD [Primary Care Provider] - 1-2 days Time of Disposition: 17:10
[2020-09-09 16:39] LABS: Basophils % (A) 1 %; Eosinophils % (A) 0 %; HCT 41.3 % (34.0-46.0); HGB 14.4 gm/dL (11.4-16.0); Lymphocytes # (A) 0.6 k/uL (1.0-4.8); Lymphocytes % (A) 19 %; MCH 33.3 pg (25.0-35.0); MCV 95.3 fL (80.0-100.0); Mean Platelet Volume 7.3; Monocytes # (A) 0.2 k/uL (0-1.0); Monocytes % (A) 6 %; Neutrophils # (A) 2.4 k/uL (1.3-7.7); Neutrophils % (A) 72 %; Platelet Count 276 k/uL (150-450); RBC 4.33 m/uL (3.80-5.40); RDW 12.3 % (11.5-15.5); WBC 3.3 k/uL (3.8-10.6)
[2020-09-09 16:47] LABS: African American GFR (CKD) >90 (>60 ml/min/1.73 sqM); Anion Gap 11 mmol/L; Blood Urea Nitrogen 16 mg/dL (7-17); Calcium 9.5 mg/dL (8.4-10.2); Carbon Dioxide 24 mmol/L (22-30); Chloride 102 mmol/L (98-107); Glucose 92 mg/dL (74-99); Non-African American GFR(CKD) >90 (>60 ml/min/1.73 sqM); Potassium 4.9 mmol/L (3.5-5.1); Sodium 137 mmol/L (137-145)
[2020-09-09] MEDS ORDERED: DEXAMETHASONE SOD PHOSPHATE 10 MG/ML 1 ML VIAL IV STA (17:08)
[2020-09-09 17:27] VITALS: BP 147/73; PULSE 73; RESP 18; TEMP 98.9
== END 2020-09-09 17:31 | disposition home or self-care (01) ==
LOC: EC 12:51
DX: U07.1 COVID-19 (principal); J12.82 Pneumonia due to coronavirus disease 2019; E78.5 Hyperlipidemia, unspecified; F41.9 Anxiety disorder, unspecified; F32.9 Major depressive disorder, single episode, unspecified; Z87.891 Personal history of nicotine dependence
CPT/HCPCS: 36415; 71046; 80048; 85025; 93005; 96361; 96374; 99285

== ENCOUNTER → 2020-12-25 | Outpatient (CLI) | payer BC ==
[2020-12-25 22:53] LABS: Basophils # (A) 0.07 X 10*3/uL (0.00-0.10); Basophils % (A) 1.1 %; Eosinophils # (A) 0.47 X 10*3/uL (0.04-0.35); Eosinophils % (A) 7.7 %; HCT 40.4 % (37.2-46.3); HGB 13.3 g/dL (12.0-15.0); Lymphocytes # (A) 1.82 X 10*3/uL (0.90-5.00); Lymphocytes % (A) 29.7 %; MCH 32.8 pg (27.0-32.0); MCHC 32.9 g/dL (32.0-37.0); MCV 99.8 fL (80.0-97.0); Mean Platelet Volume 9.7 fL (9.5-12.2); Monocytes # (A) 0.59 X 10*3/uL (0.20-1.00); Monocytes % (A) 9.6 %; Neutrophils # (A) 3.16 X 10*3/uL (1.80-7.70); Neutrophils % (A) 51.7 %; Platelet Count 289 X 10*3/uL (140-440); RBC 4.05 X 10*6/uL (4.10-5.20); RDW 11.9 % (11.5-14.5); WBC 6.12 X 10*3/uL (4.50-10.00)
== END | disposition home or self-care (01) ==
LOC: LABWHC1 14:30
PROVIDERS: ATTEND Psychiatry & Neurology Psychiatry
DX: D64.9 Anemia, unspecified (principal)
CPT/HCPCS: 36415; 85025

== ENCOUNTER 2021-02-02 12:55 | Inpatient (IN) | payer BC ==
--- NOTE | 2021-02-02 13:20 | ED ---
General Adult HPI - General Chief complaint: Psychiatric Symptoms Stated complaint: EPS eval Time Seen by Provider: 02/02/21 12:58 Source: patient, family Mode of arrival: ambulatory Limitations: no limitations - History of Present Illness Initial comments: Dictation was produced using [employer] dictation software. please excuse any grammatical, word or spelling errors. Chief Complaint: 60-year-old female with history of depression presents with suicidal ideation History of Present Illness: 60-year-old female she has history of depression. She sees a psychiatrist outpatient, Dr. Askew. Patient has been feeling suicidal for the last several days. Patient has ideation to hang herself. Strongly with racing thoughts recently. Denies any homicidal ideation. No visual auditory hallucinations. Patient has no medical complaints at this time. The ROS documented in this emergency department record has been reviewed and confirmed by me. Those systems with pertinent positive or negative responses have been documented in the HPI. All other systems are other negative and/or noncontributory. PHYSICAL EXAM: General Impression: Alert and oriented x3, not in acute distress HEENT: Normocephalic atraumatic, extra-ocular movements intact, pupils equal and reactive to light bilaterally, mucous membranes moist. Cardiovascular: Heart regular rate and rhythm Chest: Able to complete full sentences, no retractions, no tachypnea Motor: no focal deficits noted Neurological: CN II-XII grossly intact, no focal motor or sensory deficits noted Skin: Intact with no visualized rashes Psych: Normal affect and mood ED course: 60 yo well-appearing female presents to the emergency Department voluntarily for suicidal ideation, racing thoughts and worsening anxiety. Vital signs upon arrival are within acceptable limits. Patient has no medical complaints. She is well-appearing. She is medically cleared for EPS evaluation. Patient's chart was reviewed in hindsight and patient was admitted to inpatient psychiatry. - Related Data Home Medications Medication Instructions Recorded Confirmed Citalopram Hydrobromide [CeleXA] 20 mg PO DAILY 11/10/17 02/02/21 Cholecalciferol [Vitamin D3 (25 5,000 unit PO DAILY 11/20/17 02/02/21 Mcg = 1000 Iu)] Ferrous Sulfate [Iron (65 MG 325 mg PO DAILY 11/20/17 02/02/21 Elemental)] Vitamin B Complex 1 cap PO DAILY 11/20/17 02/02/21 ALPRAZolam [Xanax] 0.25 mg PO DAILY PRN 02/02/21 02/02/21 Allergies Allergy/AdvReac Type Severity Reaction Status Date / Time No Known Allergies Allergy Verified 02/02/21 15:21 Review of Systems ROS Statement: Those systems with pertinent positive or pertinent negative responses have been documented in the HPI. ROS Other: All systems not noted in ROS Statement are negative. Past Medical History Past Medical History: Hyperlipidemia Additional Past Medical History / Comment(s): hernia History of Any Multi-Drug Resistant Organisms: C-DIFF Date of last positivie culture/infection: 2009 MDRO Source:: stool Past Surgical History: Cholecystectomy Additional Past Surgical History / Comment(s): tubal ,trigger thumb repair Past Anesthesia/Blood Transfusion Reactions: No Reported Reaction Past Psychological History: Anxiety, Depression Smoking Status: Former smoker Past Alcohol Use History: Occasional Past Drug Use History: None Reported - Past Family History Father Family Medical History: Cancer, CVA/TIA, Hypertension, Thyroid Disorder Additional Family Medical History / Comment(s): stroke Mother Additional Family Medical History / Comment(s): Cholecysectomy. General Exam Limitations: no limitations Course Vital Signs 02/02/21 12:57 Temperature 97.9 F Pulse Rate 73 Respiratory 18 Rate Blood Pressure 131/74 O2 Sat by Pulse 98 Oximetry Medical Decision Making - Lab Data Result diagrams: 02/03/21 05:57 02/03/21 05:57 Lab Results 02/02/21 02/02/21 Range/Units 13:55 15:43 Urine Opiates Screen Not Detected (NotDetected) Ur Oxycodone Screen Not Detected (NotDetected) Urine Methadone Screen Not Detected (NotDetected) Ur Propoxyphene Screen Not Detected (NotDetected) Ur Barbiturates Screen Not Detected (NotDetected) U Tricyclic Antidepress Not Detected (NotDetected) Ur Phencyclidine Scrn Not Detected (NotDetected) Ur Amphetamines Screen Not Detected (NotDetected) U Methamphetamines Scrn Not Detected (NotDetected) U Benzodiazepines Scrn Detected H (NotDetected) Urine Cocaine Screen Not Detected (NotDetected) U Marijuana (THC) Screen Not Detected (NotDetected) Coronavirus (PCR) Not Detected (Not Detectd) Disposition Clinical Impression: Suicidal ideation Disposition: ADMITTED IP TO THIS HOSP Condition: Fair
[2021-02-02 14:30] LABS: Amphetamine Screen,Urine Not Detected (NotDetected); Barbiturate Screen,Urine Not Detected (NotDetected); Benzodiazepines Screen,Urine Detected (NotDetected); Cocaine Screen,Urine Not Detected (NotDetected); Methadone Screen, Urine Not Detected (NotDetected); Opiate Screen,Urine Not Detected (NotDetected); Oxycodone Screen, Urine Not Detected (NotDetected); Phencyclidine Screen,Urine Not Detected (NotDetected); Tricyclic Antidepressant,Urine Not Detected (NotDetected); Urn Cannabinoid Scrn Not Detected (NotDetected)
[2021-02-02] MEDS ORDERED: LORazepam 1 MG TAB PO STA (15:47)
[2021-02-02] MEDS ORDERED: LORazepam 1 MG TAB PO PRN (17:47)
[2021-02-02] MEDS ORDERED: MAG HYDROX/AL HYDROX/SIMETH 30 ML CUP PO PRN (17:47)
[2021-02-02] MEDS ORDERED: LORazepam 2 MG/ML INJ IM PRN (18:05)
[2021-02-02] MEDS ORDERED: HALOPERIDOL LACTATE 5 MG/ML 1 ML VIAL IM PRN (18:05)
--- NOTE | 2021-02-02 21:26 | P.CONS ---
History of Present Illness - Reason for Consult Consult date: 02/02/21 - History of Present Illness The patient was seen and evaluated with the mental health unit [facility]. I was never alone with the patient. Patient is 60-year-old female with a PMH of depression and anxiety who presented to the emergency room with depression and suicidal ideation. Patient was admitted to the mental health unit where she was seen and evaluated. Patient reports that ever since tapering off her antidepressants under guidance by her PCP, that she has been having gradually worsening anxiety with bouts of severe depression. She reports contemplating hanging herself but denied ever want to go through that since she has "a full life". She denied any physical complaints. She denied chest discomfort, shortness of breath, fever, chills, cough. Also denied nausea, vomiting, abdominal pain, diarrhea. She denied tobacco or alcohol use. Also denied illicit substance abuse. Review of systems: Pertinent positives and negatives as discussed in HPI, a complete review of systems was performed and all other systems are negative. Physical examination: General: non toxic, no distress, appears at stated age, normal weight Derm: no unusual rashes/lesions no unusual ecchymoses, warm, dry Head: atraumatic, normocephalic, symmetric Eyes: EOMI, no lid lag, anicteric sclera, pupils equal round reactive to light ENT: Nose and ears atraumatic, no thrush, no pharyngeal erythema Neck: No thyromegaly, no cervical lymphadenopathy, trachea midline, supple Mouth: no lip lesion, mucus membranes moist Cardiovascular: S1S2 reg, no murmur, positive posterior tibial pulse bilateral, no edema, capillary refill less than 2 seconds Lungs: CTA bilateral, no rhonchi, no rales , no accessory muscle use Abdominal: soft, nontender to palpation, no guarding, no appreciable organomegaly, normal bowel sounds Ext: no gross muscle atrophy, muscle strength 5 out of 5 in all 4 extremities grossly, no contractures, Neuro: CN II-XI grossly intact, light touch intact all 4 extremities, finger to nose within normal limits, Psych: Alert, oriented, appropriate affect Assessment/plan Depression and suicidal ideation -As per psychiatry Past Medical History Past Medical History: Hyperlipidemia Additional Past Medical History / Comment(s): hernia History of Any Multi-Drug Resistant Organisms: C-DIFF Year Discovered:: 2009 MDRO Source:: stool Past Surgical History: Cholecystectomy Additional Past Surgical History / Comment(s): tubal ,trigger thumb repair Past Anesthesia/Blood Transfusion Reactions: No Reported Reaction Smoking Status: Former smoker - Past Family History Father Family Medical History: Cancer, CVA/TIA, Hypertension, Thyroid Disorder Additional Family Medical History / Comment(s): stroke Mother Additional Family Medical History / Comment(s): Cholecysectomy. Medications and Allergies Home Medications Medication Instructions Recorded Confirmed Type Citalopram Hydrobromide [CeleXA] 20 mg PO DAILY 11/10/17 02/02/21 History Cholecalciferol [Vitamin D3 (25 5,000 unit PO DAILY 11/20/17 02/02/21 History Mcg = 1000 Iu)] Ferrous Sulfate [Iron (65 MG 325 mg PO DAILY 11/20/17 02/02/21 History Elemental)] Vitamin B Complex 1 cap PO DAILY 11/20/17 02/02/21 History ALPRAZolam [Xanax] 0.25 mg PO DAILY PRN 02/02/21 02/02/21 History Allergies Allergy/AdvReac Type Severity Reaction Status Date / Time No Known Allergies Allergy Verified 02/02/21 15:21 Physical Exam Vitals: Vital Signs Temp Pulse Pulse Resp BP BP Pulse Ox 02/02/21 17:35 98.0 F 74 18 110/65 98 02/02/21 12:57 97.9 F 73 18 131/74 98 Intake and Output 02/02/21 02/02/21 02/02/21 06:59 14:59 22:59 Other: Weight 56.699 kg 57.1 kg Results Labs: Abnormal Lab Results - Last 24 Hours (Table) 02/02/21 Range/Units 13:55 U Benzodiazepines Scrn Detected H (NotDetected)
[2021-02-03 06:30] LABS: Basophils # (A) 0.1 k/uL (0-0.2); Basophils % (A) 1 %; Eosinophils # (A) 0.4 k/uL (0-0.7); Eosinophils % (A) 7 %; HCT 42.1 % (34.0-46.0); HGB 14.5 gm/dL (11.4-16.0); Lymphocytes # (A) 1.7 k/uL (1.0-4.8); Lymphocytes % (A) 33 %; MCHC 34.3 g/dL (31.0-37.0); MCV 99.2 fL (80.0-100.0); Monocytes # (A) 0.4 k/uL (0-1.0); Monocytes % (A) 8 %; Neutrophils # (A) 2.6 k/uL (1.3-7.7); Neutrophils % (A) 49 %; Platelet Count 256 k/uL (150-450); RBC 4.25 m/uL (3.80-5.40); RDW 12.8 % (11.5-15.5); WBC 5.2 k/uL (3.8-10.6)
[2021-02-03 06:46] LABS: Albumin 4.2 g/dL (3.5-5.0); Calcium 10.3 mg/dL (8.4-10.2); Potassium 4.5 mmol/L (3.5-5.1); Total Bilirubin 0.6 mg/dL (0.2-1.3); Total Protein 6.8 g/dL (6.3-8.2)
[2021-02-03] MEDS: CHOLECALCIFEROL 25 MCG (1000 IU) TABLET PO SCH (07:56)
[2021-02-03] MEDS: FOLIC ACID-VIT B COMPLEX-VIT C 1 CAP PO SCH (07:56)
[2021-02-03] MEDS: FERROUS SULFATE 325 MG TAB PO SCH (07:56)
[2021-02-03] MEDS ORDERED: CITALOPRAM HYDROBROMIDE 20 MG TAB PO SCH (09:00)
[2021-02-03] MEDS ORDERED: CITALOPRAM HYDROBROMIDE 10 MG TAB PO STA (11:26)
[2021-02-03] MEDS ORDERED: ARIPiprazole 5 MG TAB PO STA (11:26)
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
[2021-02-03 12:16] LABS: Chol/HDL Ratio 4.37; LDL Cholesterol,Calculated 180.8 mg/dL (0.0-131.0); VLDL Calculation 21.2 mg/dL (5.00-40.00)
[2021-02-03 15:47] LABS: Hemoglobin A1C 5.4 % (4.0-6.0)
[2021-02-04] MEDS: FOLIC ACID-VIT B COMPLEX-VIT C 1 CAP PO SCH (08:27)
[2021-02-04] MEDS: CHOLECALCIFEROL 25 MCG (1000 IU) TABLET PO SCH (08:27)
[2021-02-04] MEDS: FERROUS SULFATE 325 MG TAB PO SCH (08:28)
[2021-02-04] MEDS: CITALOPRAM HYDROBROMIDE 10 MG TAB PO SCH (08:28)
[2021-02-04] MEDS ORDERED: ARIPiprazole 5 MG TAB PO SCH (09:00)
[2021-02-04] MEDS ORDERED: LORazepam 0.5 MG TAB PO PRN (10:25)
[2021-02-04] MEDS ORDERED: LORazepam 2 MG/ML INJ IM PRN (10:25)
--- NOTE | 2021-02-04 10:25 | P.PN ---
Progress Note - Text Progress Note Date: 02/04/21 Interval History: Patient was seen resting in bed and was directable and agreeable to speak with staff writer in the office. The patient reports that her intrusive thoughts of suicide decreased and so has her "shakiness." The patient's primary concern at this time is that she is feeling quite sedated on the medications. She reports that she feels like her energy is much lower than usual and that she is not functioning at her baseline. She reports that her sleep has improved. She denies any issues regarding her appetite. She is currently not reporting any homicidal ideation, intention, and/or plan. She is not reporting any auditory or visual hallucinations. She is not reporting any paranoia or other delusions. Mental Status Exam: General Appearance: Patient appears to be stated age is alert, directable, and cooperative. Behavior: Patient is calmly seated without any agitated behavior. Psychomotor activity slowed elevated. Speech: Patient's speech is fluent and nonpressured. Spontaneous, normal rate, tone, and volume. Mood/Affect: Mood is described as "tired," affect is congruent but euthymic. Suicidality/Homicidality: Patient denies having any suicidal or homicidal ideation intent or plan. Perceptions: Patient denies any visual hallucinations and denies any auditory hallucinations Though content/process: There is no evidence of any delusional thought content and thought process is linear and goal-directed. Memory and concentration: AOX3, grossly intact for the purposes of this session Judgment and insight: Improving mildly Vital Signs Temp 98.5 F 02/04/21 06:38 Pulse 63 02/04/21 06:38 Resp 14 02/04/21 06:38 BP 110/59 02/04/21 06:38 Pulse Ox 98 02/02/21 17:35 Intake & Output 02/03/21 02/04/21 02/04/21 18:59 06:59 18:59 Weight 57.1 kg Laboratory Results - Last 24 Hours 02/03/21 02/03/21 05:57 05:[address] Glu mg/dL 108 Hemoglobin A1c 5.4 Triglycerides 106.0 Cholesterol 262 H LDL Cholesterol, Calc 180.8 H VLDL Cholesterol, Calc 21.20 HDL Cholesterol 60.0 Cholesterol/HDL Ratio 4.37 Assessment Major depressive disorder, recurrent, severe, with anxious features Rule out obsessive-compulsive disorder Plan: -Patient continues to meet criteria for inpatient psychiatric admission for symptom stabilization and safety. Patient has signed adult voluntary form and medication consent and was placed in patient's chart. -Medications: Continue Celexa 30 mg by mouth daily for depression/anxiety/OCD-like symptoms Continue Abilify 5 mg by mouth daily for mood augmentation/racing thoughts We'll decrease as needed Ativan to 0.5 mg -When necessary Ativan and Haldol for agitation/aggression. -SW on board for discharge planning. Encouraged the patient to participate in milieu.
[2021-02-04] MEDS: ACETAMINOPHEN TAB 325 MG TAB PO PRN (10:46)
[2021-02-04] MEDS: MAGNESIUM HYDROXIDE 2,400 MG/10 ML CUP PO PRN (10:46)
[2021-02-04] MEDS: ARIPiprazole 5 MG TAB PO SCH (20:43)
[2021-02-05] MEDS: CITALOPRAM HYDROBROMIDE 10 MG TAB PO SCH (08:08)
[2021-02-05] MEDS: FERROUS SULFATE 325 MG TAB PO SCH (08:08)
[2021-02-05] MEDS: CHOLECALCIFEROL 25 MCG (1000 IU) TABLET PO SCH (08:08)
[2021-02-05] MEDS: FOLIC ACID-VIT B COMPLEX-VIT C 1 CAP PO SCH (08:08)
[2021-02-05] MEDS ORDERED: traZODone HCL 50 MG TAB PO PRN (10:21)
--- NOTE | 2021-02-05 11:16 | P.PN ---
Progress Note - Text Progress Note Date: 02/05/21 Interval History: Patient was seen resting in bed and was directable and agreeable to speak with editorial writer in the office. Patient is expressing that she is feeling increasingly anxious and not entirely safe for discharge. The patient reports that she was unable to sleep last night and that she was constantly tossing and turning in bed. She does report that she continued to feel "internal shakiness" yesterday that was quite bothersome and required Ativan. Furthermore, the patient reported that she felt like she could not continue to live if she was to either feel overly sedated or increasingly shaky. Yesterday, the patient was interested in discharge but states that she is not feeling safe for it atthis time. Patient is otherwise not endorsing any significant plans for suicide but does endorse suicidal ideation. She is not reporting any homicidal ideation, intention, and/or plan. She denies any auditory or visual hallucinations. She is reporting no paranoid delusions. The patient states that she fears that if she was to be discharged, and that if she "could not take it," she is "likely to be present back in the hospital by Monday." Mental Status Exam: General Appearance: Patient appears to be stated age is alert, directable, and cooperative. Behavior: Patient is calmly seated without any agitated behavior. Psychomotor activity is elevated. Speech: Patient's speech is fluent and nonpressured. Spontaneous, with slightly increased rate. Mood/Affect: Mood is described as "very anxious," affect is congruent and nervous and somewhat dysphoric Suicidality/Homicidality: Patient denies having any homicidal ideation, intention, and/or plan. She reports passive thoughts of "not wanting to live like this." Perceptions: Patient denies any visual hallucinations and denies any auditory hallucinations Though content/process: There is no evidence of any delusional thought content and thought process is linear and goal-directed. Memory and concentration: AOX3, grossly intact for the purposes of this session Judgment and insight: Improving mildly Vital Signs Temp 98.3 F 02/05/21 06:11 Pulse 88 02/05/21 08:05 Resp 15 02/05/21 06:11 BP 119/62 02/05/21 08:05 Pulse Ox 98 02/02/21 17:35 Assessment Major depressive disorder, recurrent, severe, with anxious features Rule out obsessive-compulsive disorder Plan: -Patient continues to meet criteria for inpatient psychiatric admission for symptom stabilization and safety. Patient has signed adult voluntary form and medication consent and was placed in patient's chart. -Medications: Continue Celexa 30 mg by mouth daily for depression/anxiety/OCD-like symptoms Continue Abilify 5 mg by mouth daily for mood augmentation/racing thoughts. We will increase Abilify over the weekend pending patient's response and tolerance with this medication. Start Trazodone 50 mg by mouth at bedtime when necessary for insomnia -When necessary Ativan and Haldol for agitation/aggression. -SW on board for discharge planning. Encouraged the patient to participate in milieu.
[2021-02-05] MEDS: MAGNESIUM HYDROXIDE 2,400 MG/10 ML CUP PO PRN (13:32)
[2021-02-05] MEDS: ARIPiprazole 5 MG TAB PO SCH (20:14)
[2021-02-06 06:17] VITALS: BP 114/58; PULSE 75; RESP 18; TEMP 98
[2021-02-06] MEDS: CHOLECALCIFEROL 25 MCG (1000 IU) TABLET PO SCH (08:30)
[2021-02-06] MEDS: FOLIC ACID-VIT B COMPLEX-VIT C 1 CAP PO SCH (08:30)
[2021-02-06] MEDS: FERROUS SULFATE 325 MG TAB PO SCH (08:30)
[2021-02-06] MEDS: CITALOPRAM HYDROBROMIDE 10 MG TAB PO SCH (08:30)
[2021-02-06] MEDS: ACETAMINOPHEN TAB 325 MG TAB PO PRN (10:06)
--- NOTE | 2021-02-06 14:05 | P.DS ---
Providers Date of admission: 02/02/21 17:16 Attending physician: Selwyn Aguilar MD Consults: 02/02/21 18:04 Consult Physician Routine Consulting Provider: Phil Physician Consult Reason/Comments: H&P and medical Do you want consulting provider notified?: Yes Primary care physician: Danish Cartwright - Amy Diagnosis(es) (1) Major depressive disorder, recurrent episode with anxious distress Current Visit: Yes Status: Resolved Priority: Low (2) Suicidal ideation Current Visit: Yes Status: Chronic Priority: High Hospital Course: HISTORY: She is a 60-year-old female who has a history of depression and anxiety. She presented to the psychiatric unit voluntarily with complaints of racing thoughts, depression, increasing anxiety and obsessive suicidal thoughts. She described increasing depression since she tapered the antidepressant citalopram about 2-4 months ago. She noticed increasing anxiety and depression during a trip to [place] in December. When she return home she restart his Celexa l but the anxiety, panic and depression persisted. She became distressed when she experienced obsessive and recurrent thoughts about hanging. She had no prior psychiatric hospitalizations. She denied a history of suicidal attempts or gestures. There is no history of psychotic symptoms. HOSPITAL COURSE: We admitted her voluntarily to the psychiatric unit under the care of Dr. Aguilar. He provided a comprehensive biopsychosocial assessment. The oim consultant duct layer completed initial physical exam and medical history and did not identify. We increased her Celexa to 30 mg and augment the antidepressant with Abilify starting at a dose of 5 mg per day. We treated anxiety with when necessary Ativan. She explains that she takes modest amounts of Xanax at home usually a half of a 0.5 mg tablet; she reports marked sedation which she took 1 mg tablet she was in the hospital. Her depression improved substantially with increased the dose Abilify 7.5 mg per day. She participated actively in therapeutic groups and activities. She posed no management problem had no episodes of behavioral dyscontrol. MENTAL STATUS ON DISCHARGE: At the time of discharge she presented as a casually groomed 60-year-old female who was pleasant on approach. She made eye contact and attended to the interview. She had no distinguishing features or prominent physical modalities. She had a bright facial expression. She was alert and oriented to person, place and time. She showed no abnormality of psychomotor activity. Her gait was steady. Her speech was spontaneous with normal rate, rhythm and volume. Her affect was bright, stable and appropriate. She denied suicidal ideation and wishes. She denied homicidal ideation. She denied feeling hopeless, helpless or worthless. She did not express ideas reference, paranoid ideation or delusions. She denied experiencing obsessive or ruminative thoughts. Her thinking was abstract and associations were coherent, logical and goal directed. She denied hallucinations did not appear to be responding to internal stimuli. DISPOSITION: She returned home with her . She has a follow-up appointment scheduled a [facility] on 02/10/2001. Her discharge medications included Celexa 30 mg daily, Abilify 7.5 mg daily and Xanax 0.25 mg by mouth when necessary. She is to follow up with her primary care provider for medication management. Patient Condition at Discharge: Stable Plan - Discharge Summary Discharge Rx Participant: No New Discharge Prescriptions: New Citalopram Hydrobromide [CeleXA] 30 mg PO DAILY tab ARIPiprazole [Abilify] 7.5 mg PO HS #30 tab traZODone HCL [Desyrel] 50 mg PO HS PRN #15 tab PRN Reason: Insomnia Continue Citalopram Hydrobromide [CeleXA] 20 mg PO DAILY Ferrous Sulfate [Iron (65 MG Elemental)] 325 mg PO DAILY Cholecalciferol [Vitamin D3 (25 Mcg = 1000 Iu)] 5,000 unit PO DAILY Vitamin B Complex 1 cap PO DAILY ALPRAZolam [Xanax] 0.25 mg PO DAILY PRN PRN Reason: Anxiety Discharge Medication List Citalopram Hydrobromide [CeleXA] 20 mg PO DAILY 11/10/17 [History] Cholecalciferol [Vitamin D3 (25 Mcg = 1000 Iu)] 5,000 unit PO DAILY 11/20/17 [History] Ferrous Sulfate [Iron (65 MG Elemental)] 325 mg PO DAILY 11/20/17 [History] Vitamin B Complex 1 cap PO DAILY 11/20/17 [History] ALPRAZolam [Xanax] 0.25 mg PO DAILY PRN 02/02/21 [History] ARIPiprazole [Abilify] 7.5 mg PO HS #30 tab 02/06/21 [Rx] Citalopram Hydrobromide [CeleXA] 30 mg PO DAILY tab 02/06/21 [Rx] traZODone HCL [Desyrel] 50 mg PO HS PRN #15 tab 02/06/21 [Rx] Follow up Appointment(s)/Referral(s): Hugo Cartwright MD [Primary Care Provider] - 1-2 days [facility] [Outside] - 02/10/21 10:00 am (Marilyn please call [facility] prior to appointment for intake information) Activity/Diet/Wound Care/Special Instructions: Activity and diet as tolerated. Avoid the use of street drugs and alcohol. Take all medications as prescribed. When you are in need of refills on your medications please contact your medical provider and/or outpatient psychiatrist to have this done. Please go to scheduled outpatient appointment for aftercare treatment. If symptoms return or become worse, call the crisis line at and/or go to the nearest emergency room for evaluation. Discharge Disposition: HOME SELF-CARE
[2021-02-06] MEDS ORDERED: ARIPiprazole 5 MG TAB PO SCH (21:00)
== END 2021-02-06 15:30 | disposition home or self-care (01) | DRG 885 ==
LOC: EC 12:55 → 3MHU 17:16
PROVIDERS: ADMIT Psychiatry & Neurology Psychiatry; ATTEND Psychiatry & Neurology Psychiatry
DX: F33.3 Major depressive disorder, recurrent, severe with psychotic symptoms (principal); R45.851 Suicidal ideations; E78.5 Hyperlipidemia, unspecified; F41.9 Anxiety disorder, unspecified; Z79.899 Other long term (current) drug therapy; Z82.3 Family history of stroke; Z82.49 Family history of ischemic heart disease and other diseases of the circulatory system; Z87.891 Personal history of nicotine dependence; F42.9 Obsessive-compulsive disorder, unspecified
CPT/HCPCS: 80053; 80061; 80306; 82075; 83036; 84443; 85025; 87635; 99285

== ENCOUNTER → 2021-03-01 | Outpatient (CLI) | payer BC | END | disposition home or self-care (01) | LOC: LABWHC1 10:50 | PROVIDERS: ATTEND Psychiatry & Neurology Psychiatry | DX: U07.1 COVID-19 (principal) | CPT/HCPCS: 36415; 86769 ==

== ENCOUNTER → 2021-03-29 | Outpatient (CLI) | payer BC ==
[2021-03-29 14:56] LABS: HCT 41.5 % (37.2-46.3); HGB 13.2 g/dL (12.0-15.0); MCH 31.7 pg (27.0-32.0); MCHC 31.8 g/dL (32.0-37.0); MCV 99.8 fL (80.0-97.0); Mean Platelet Volume 9.6 fL (9.5-12.2); Platelet Count 272 X 10*3/uL (140-440); RBC 4.16 X 10*6/uL (4.10-5.20); RDW 12.5 % (11.5-14.5); WBC 4.23 X 10*3/uL (4.50-10.00)
[2021-03-29 16:10] LABS: Chol/HDL Ratio 4.28 Ratio; HDL Cholesterol 69.8 mg/dL (40.00-60.00); Triglycerides 81.1 mg/dL (0.00-149.00); VLDL Calculation 16.22 mg/dL (5.00-40.00)
== END | disposition home or self-care (01) ==
LOC: LABWHC1 08:25
PROVIDERS: ATTEND Psychiatry & Neurology Psychiatry
DX: Z79.899 Other long term (current) drug therapy (principal)
CPT/HCPCS: 36415; 80061; 83036; 85027

== ENCOUNTER → 2021-07-22 | Outpatient (CLI) | payer BC ==
[2021-07-22 15:37] LABS: HCT 41.9 % (37.2-46.3); HGB 13.6 g/dL (12.0-15.0); MCH 32.2 pg (27.0-32.0); MCHC 32.5 g/dL (32.0-37.0); MCV 99.1 fL (80.0-97.0); Mean Platelet Volume 9.6 fL (9.5-12.2); NRBC Per 100 WBC 0 /100 WBCS (0.0-0.0); Platelet Count 258 X 10*3/uL (140-440); RBC 4.23 X 10*6/uL (4.10-5.20); RDW 12.1 % (11.5-14.5); WBC 4.17 X 10*3/uL (4.50-10.00)
[2021-07-22 16:20] LABS: ALT 18 U/L (8-44); AST 21 U/L (13-35); African American GFR (CKD) 70.8 (60.0-200.0); Albumin 4.4 g/dL (3.8-4.9); Albumin/Globulin Ratio 1.96 (1.60-3.17); Alkaline Phosphatase 75 U/L (41-126); BUN/Creat Ratio 16.27 Ratio (12.00-20.00); Blood Urea Nitrogen 16.2 mg/dL (9.0-27.0); Calcium 9.7 mg/dL (8.7-10.3); Carbon Dioxide 25.9 mmol/L (20.0-27.5); Chloride 105 mmol/L (96-109); Chol/HDL Ratio 4.28 Ratio; Globulin 2.2 g/dL (1.6-3.3); Glucose 95 mg/dL (70-110); LDL Cholesterol,Calculated 198.8 mg/dL (0.0-131.0); Non-African American GFR(CKD) 61.1 (60.0-200.0); Potassium 4.9 mmol/L (3.5-5.5); Sodium 141 mmol/L (135-145); Total Protein 6.6 g/dL (6.2-8.2)
== END | disposition home or self-care (01) ==
LOC: LABWHC1 09:14
PROVIDERS: ATTEND Psychiatry & Neurology Psychiatry
DX: E78.5 Hyperlipidemia, unspecified (principal)
CPT/HCPCS: 36415; 80053; 80061; 83036; 84439; 84443; 85027

== ENCOUNTER → 2021-11-05 | Outpatient (CLI) | payer BC ==
[2021-11-05 14:21] LABS: Basophils # (A) 0.05 X 10*3/uL (0.00-0.10); Basophils % (A) 0.8 %; Eosinophils # (A) 0.34 X 10*3/uL (0.04-0.35); Eosinophils % (A) 5.2 %; Immature Grans, Automated 0.3 %; Lymphocytes # (A) 1.09 X 10*3/uL (0.90-5.00); Lymphocytes % (A) 16.6 %; MCH 32.1 pg (27.0-32.0); MCHC 31.8 g/dL (32.0-37.0); MCV 100.9 fL (80.0-97.0); Mean Platelet Volume 9.8 fL (9.5-12.2); Monocytes # (A) 0.56 X 10*3/uL (0.20-1.00); Monocytes % (A) 8.5 %; NRBC Per 100 WBC 0 /100 WBCS (0.0-0.0); Neutrophils # (A) 4.52 X 10*3/uL (1.80-7.70); Neutrophils % (A) 68.6 %; Platelet Count 257 X 10*3/uL (140-440); RBC 4.36 X 10*6/uL (4.10-5.20); RDW 12.3 % (11.5-14.5); WBC 6.58 X 10*3/uL (4.50-10.00)
[2021-11-05 15:14] LABS: ALT 17 U/L (8-44); AST 20 U/L (13-35); African American GFR (CKD) 62.8 (60.0-200.0); Albumin 4.5 g/dL (3.8-4.9); Alkaline Phosphatase 80 U/L (41-126); BUN/Creat Ratio 19.09 Ratio (12.00-20.00); Calcium 9.9 mg/dL (8.7-10.3); Carbon Dioxide 25.3 mmol/L (20.0-27.5); Chloride 108 mmol/L (96-109); Chol/HDL Ratio 5.28 Ratio; Globulin 2.5 g/dL (1.6-3.3); Glucose 106 mg/dL (70-110); LDL Cholesterol,Calculated 213.9 mg/dL (0.0-131.0); Non-African American GFR(CKD) 54.1 (60.0-200.0); Potassium 4.7 mmol/L (3.5-5.5); Sodium 143 mmol/L (135-145)
== END | disposition home or self-care (01) ==
LOC: LABWHC1 07:53
PROVIDERS: ATTEND Psychiatry & Neurology Psychiatry
DX: E78.5 Hyperlipidemia, unspecified (principal)
CPT/HCPCS: 36415; 80053; 80061; 83036; 84439; 84443; 85025

== ENCOUNTER → 2021-12-09 | Outpatient (CLI) | payer BC ==
[2021-12-09 16:19] LABS: ALT 18 U/L (8-44); AST 26 U/L (13-35); Chol/HDL Ratio 3.39 Ratio; LDL Cholesterol,Calculated 119.1 mg/dL (0.0-131.0); VLDL Calculation 15.64 mg/dL (5.00-40.00)
== END | disposition home or self-care (01) ==
LOC: LABWHC1 08:42
PROVIDERS: ATTEND Family Medicine
DX: E78.2 Mixed hyperlipidemia (principal)
CPT/HCPCS: 36415; 80061; 84450; 84460

== ENCOUNTER → 2023-01-17 | Outpatient (CLI) | payer BC ==
--- NOTE | 2023-01-17 17:49 | CA ---
Transthoracic Echo Report Name: Jeanne Valencia Age: 62 Gender: F : 1960 Exam Date: 01/17/2023 13:50 Exam Location: [place] [facility] Ht (in): 64 Wt (lb): 137 Ordering Physician: Cynthia Webster MD Attending/Referring Phys: Cynthia Webster MD Repairer Controller Tester Carolina Simpson, [facility] Procedure CPT: Indications: Q21.12 EVALUATE FOR PFO Cardiac Hx: Technical Quality: Good Contrast 1: Total Dose (mL): Contrast 2: Total Dose (mL): MEASUREMENTS (Male / Female) Normal Values 2D ECHO LV Diastolic Diameter PLAX 4.5 cm 4.2 - 5.9 / 3.9 - 5.3 cm LV Systolic Diameter PLAX 2.9 cm IVS Diastolic Thickness 0.7 cm 0.6 - 1.0 / 0.6 - 0.9 cm LVPW Diastolic Thickness 1.0 cm 0.6 - 1.0 / 0.6 - 0.9 cm LV Relative Wall Thickness 0.4 RV Internal Dim ED PLAX 2.9 cm LA Systolic Diameter LX 3.0 cm 3.0 - 4.0 / 2.7 - 3.8 cm LV Diastolic Volume MOD 4C 67.3 cm??? LV Systolic Volume MOD 4C 28.5 cm??? LV Ejection Fraction MOD 4C 57.6 % LV Diastolic Length 4C 7.4 cm LV Systolic Length 4C 5.7 cm LV Diastolic Volume MOD 2C 52.3 cm??? LV Systolic Volume MOD 2C 19.3 cm??? LV Ejection Fraction MOD 2C 63.1 % LV Diastolic Length 2C 7.4 cm LV Systolic Length 2C 6.1 cm LA Volume 32.4 cm??? 18 - 58 / 22 - 52 cm??? M-MODE Aortic Root Diameter MM 2.7 cm MV E Point Septal Separation 0.1 cm AV Cusp Separation MM 2.0 cm DOPPLER AV Peak Velocity 115.1 cm/s AV Peak Gradient 5.3 mmHg MV Area PHT 2.1 cm??? Mitral E Point Velocity 62.1 cm/s Mitral A Point Velocity 65.3 cm/s Mitral E to A Ratio 1.0 MV Deceleration Time 365.1 ms MV E' Velocity 7.8 cm/s Mitral E to MV E' Ratio 8.0 TR Peak Velocity 213.9 cm/s TR Peak Gradient 18.3 mmHg Right Ventricular Systolic Press 22.4 mmHg FINDINGS Left Ventricle Left ventricular ejection fraction is estimated at 55-60 %. Left ventricular cavity size normal. Left ventricular wall thickness normal. Normal left ventricular wall motion. Right Ventricle Normal right ventricular size. Right ventricular systolic pressure within normal limits. Right Atrium Normal right atrial size. Negative agitated saline bubble study for right to left shunt. No PFO noted Left Atrium Normal left atrial size. Mitral Valve Structurally normal mitral valve. Mild mitral regurgitation. Aortic Valve Trileaflet aortic valve. No aortic valve stenosis or regurgitation. Tricuspid Valve Structurally normal tricuspid valve. Mild tricuspid regurgitation. Pulmonic Valve Structurally normal pulmonic valve. No pulmonic regurgitation. Pericardium No pericardial effusion. Aorta Normal size aortic root and proximal ascending aorta. CONCLUSIONS Normal LV function Negative bubble study Consider DOMINIC to definitively rule out cardiac source for thromboembolic CVA Previewed by: Dr. Naeem Cartwright MD (Electronically Signed) Final Date: 17 January 2023 17:49
== END | disposition home or self-care (01) ==
LOC: RADECHMAIN 13:41
PROVIDERS: ATTEND Psychiatry & Neurology Psychiatry
DX: Q21.12 Patent foramen ovale (principal)
CPT/HCPCS: 93306

== ENCOUNTER → 2024-02-01 | Outpatient (CLI) | payer OTHER ==
[2024-02-01 17:06] LABS: HCT 41.1 % (37.2-46.3); HGB 13.4 g/dL (12.0-15.0); MCH 32.5 pg (27.0-32.0); MCHC 32.6 g/dL (32.0-37.0); MCV 99.8 FL (80.0-97.0); Mean Platelet Volume 9.5 FL (9.5-12.2); NRBC Per 100 WBC 0 X 10*3/uL (0.00-0.01); Platelet Count 215 X 10*3/uL (140-440); RBC 4.12 X 10*6/uL (4.10-5.20); RDW 12.6 % (11.5-14.5); WBC 5.67 X 10*3/uL (4.50-10.00)
[2024-02-01 17:33] LABS: ALT 25 U/L (8-44); AST 24 U/L (13-35); Albumin 4.3 g/dL (3.8-4.9); Albumin/Globulin Ratio 1.87 Ratio (1.60-3.17); Alkaline Phosphatase 99 U/L (41-126); BUN/Creat Ratio 18.78 Ratio (12.00-20.00); Blood Urea Nitrogen 16.9 mg/dL (9.0-27.0); Calcium 9.4 mg/dL (8.7-10.3); Carbon Dioxide 23.4 mmol/L (21.6-31.8); Chloride 106 mmol/L (96-109); Chol/HDL Ratio 3.38 Ratio; Globulin 2.3 g/dL (1.6-3.3); Glucose 98 mg/dL (70-110); LDL Cholesterol,Calculated 135.2 mg/dL (0.0-131.0); Potassium 4.8 mmol/L (3.5-5.5); Sodium 138 mmol/L (135-145); Total Bilirubin 0.4 mg/dL (0.3-1.2); Total Protein 6.6 g/dL (6.2-8.2); VLDL Calculation 14.02 mg/dL (5.00-40.00)
== END | disposition home or self-care (01) ==
LOC: LABWHC1 08:46
PROVIDERS: ATTEND Family Medicine
DX: Z00.01 Encounter for general adult medical examination with abnormal findings (principal)
CPT/HCPCS: 36415; 80053; 80061; 85027